=== PATIENT | male | born 1960 | race Caucasian/White ===

== ENCOUNTER 2024-05-13 07:45 | Outpatient (CLI) | payer OTHER, SELFPAY | END 2024-05-13 07:46 | disposition home or self-care (01) | LOC: ANHLAB 07:47 | PROVIDERS: PCP Internal Medicine; Visit Provider Anesthesiology | DX: K40.90 Unilateral inguinal hernia, without obstruction or gangrene, not specified as recurrent (principal) | CPT/HCPCS: 36415; 86850; 86900; 86901 ==

== ENCOUNTER 2024-05-19 00:43 | Day surgery (SDC) | payer OTHER, SELFPAY ==
[2024-05-08 10:32] VITALS: BMI 25.2
--- NOTE | 2024-05-08 10:35 | PC.NURSE ---
Report to the Outpatient Waiting Room, entrance under the green pavilion located off [facility], at time 0600_ on date _05/19/24_. Planned Procedure Time: 0730_.? Time changes happen often and if your time is changed the preop area will call you the afternoon before. - You and your visitor will be asked to self-screen and do not enter if you have any COVID symptoms. Please call surgeon if you need to reschedule. - A mask is optional within the hospital at this time. Patients may have clear liquids (water, carbonated beverages, clear teas, apple juice) until 3 hours prior to surgery with a maximum of 20 ounces. - No food from midnight until time of surgery and no smoking. This includes no chewing gum, candy or mints. - Infants may have breast milk until 4 hours before surgery, formula 6 hours prior to surgery. - Children will be allowed to drink immediately following surgery.? If applicable, please bring a bottle or sippy cup to assist with drinking. Juice, water, soda, and popsicles are readily available.? For infants on formula, please bring formula the day of surgery.? Pacifiers are allowed. Take only the following medications with a SIP of water on the morning of surgery: __NONE DO NOT STOP ANY OF YOUR OTHER PRESCRIPTION MEDICATIONS PRIOR TO SURGERY EXCEPT THE FOLLOWING Medications to discontinue per physician ___ALEVE Date to take last dose 05/14/24 Please no make-up, nail bengali, hairspray, perfume, deodorant, or body powder the day of surgery.? No jewelry (including any body piercings) or valuables the day of surgery, leave them at home.? Please take a shower or bath the night before, or the morning of, surgery with HIBICLENS antibacterial soap.? Wear comfortable, loose fitting clothing.? Children are encouraged to wear pajamas. - Jewelry must be removed prior to entering the operating room.? Rings and piercings that are not removed may be cut off. - The hospital will not accept responsibility for valuables.? - Please leave all valuables, including medications, at home the day of surgery. If you are going home after surgery, a licensed new car driver must drive you home.? - NO public transportation without another adult if you receive anesthesia. - We recommend that an adult stay with you for 24 hours following discharge. - We also recommend that you do not drive, make important decision, drink alcoholic beverages, or take any drugs that were not prescribed by your health care provider for at least 24 hours after your discharge time. For Pediatric surgeries, we recommend two adults accompany the child home. Follow any additional instructions given to you from your surgeon. Telephone instructions given to PATIENT__and asked if any additional questions and then verbalized understanding. Patient advised to call surgeon office or pre surgery nurse liaison [phone] if any additional questions.
[2024-05-19] VITALS (9 sets, daily range): BP systolic 113–162; BP diastolic 75–99; PULSE 62–77; RESP 14–32; TEMP 36.4–36.5; O2SAT 96–100
--- OUTSIDE RECORDS SUMMARY | 2024-05-19 00:47 | XMS_ITS | Data Portability ---
Author Organization [place] [email or web address], Main Office Address [address] [place] [address] Care Team Providers Care Farmhand Name Role Phone SHABBIR SALAMANCA Primary Care Provider [phone] BEBO ORTA Civil Engineering Assistant Assessment Encounter Date Assessment Date Assessment LastModified by Organization Details LastModified Time 11/26/2023 11/26/2023 06/14/2022: HCT 38.6 AST 51 12/20/2022: HONEY +ve ccp Ab 31 ESR 75 CRP 2.30 RF 29.3 Hep panel: Neg Gluc 104 HCT 39.0 05/28/2023: Testosteron Free 14.70 A1C 5.0 Gluc 102 08/26/2023: A1C 5.1 H/H 12.6/36.2 TP WNL, glob 2.4L Not available 11/26/2023 11:02:26 2023 2023 hyper pigmented lesion mid scalp. Patient remains concerned as well as his primary care physician has referred a again for the same reason. We will obtain punch biopsy to rule out malignancy. Risks and benefits of the procedure were discussed risks include bleeding and infection Not available 2023 11:24:53 01/30/2024 01/30/2024 06/14/2022: HCT 38.6 AST 51 12/20/2022: HONEY +ve ccp Ab 31 ESR 75 CRP 2.30 RF 29.3 Hep panel: Neg Gluc 104 HCT 39.0 05/28/2023: Testosteron Free 14.70 A1C 5.0 Gluc 102 08/26/2023: A1C 5.1 H/H 12.6/36.2 TP WNL, glob 2.4L 12/04/2023: A1C 5.1 PSA 2.12 H/H 12.9/38.1, MCV 98.7 (B12/Folate/T SH: WNL) Not available 01/30/2024 16:03:00 02/06/2024 02/06/2024 we will out abdominal wall hernia. Does not have a inguinal hernia on exam. We will proceed with CT scan to further evaluate Not available 02/06/2024 12:37:31 03/03/2024 03/03/2024 06/14/2022: HCT 38.6 AST 51 12/20/2022: HONEY +ve ccp Ab 31 ESR 75 CRP 2.30 RF 29.3 Hep panel: Neg Gluc 104 HCT 39.0 05/28/2023: Testosteron Free 14.70 A1C 5.0 Gluc 102 08/26/2023: A1C 5.1 H/H 12.6/36.2 TP WNL, glob 2.4L 12/04/2023: A1C 5.1 PSA 2.12 H/H 12.9/38.1, MCV 98.7 (B12/Folate/T SH: WNL) Not available 03/02/2024 19:21:57 Plan of Treatment Reminders Order Date Submit Date Provider Last Modified By Organization Details Last Modified Time Details Appointments Any 15 2024 04:15P M Shabbir cordero MD Not available Not available Not available Lab lipid panel, serum 2023 024 [facility] (Lab), [address] [place], [address], 12/04/2023 12:33:19 CBC w/ auto diff 2023 024 [facility] (Lab), [address] [place], [address], 12/04/2023 12:21:47 CMP, serum or plasma 2023 024 [facility] (Lab), [address] [place], [address], 12/04/2023 12:33:24 TSH, serum or plasma 2023 024 [facility] (Lab), [address] [place], [address], 12/04/2023 13:42:29 glycohemo globin, total, blood 2023 024 [facility] (Lab), [address] [place], [address], 12/04/2023 14:37:04 vitamin D, 25-hydrox y, total, serum [address] (Lab), [address] [place], [address], 11/26/2023 11:16:53 vitamin B12 + folate, serum or blood [address] (Lab), [address] [place], [address], 11/26/2023 11:16:53 lipid panel, serum [address] (Lab), [address] [place], [address], 01/30/2024 16:22:21 CBC w/ auto diff [address] (Lab), [address] [place], [address], 01/30/2024 16:22:21 CMP, serum or plasma [address] (Lab), [address] [place], [address], 01/30/2024 16:22:22 TSH, serum or plasma [email or web address] (Lab), [address] [place], [address], 01/30/2024 16:22:22 glycohemo globin, total, blood [email or web address] (Lab), [address] [place], [address], 01/30/2024 16:22:23 vitamin D, 25-hydrox y, total, serum [address] (Lab), [address] [place], [address], 01/30/2024 16:22:22 vitamin B12 + folate, serum or blood [address] (Lab), [address] [place], [address], 01/30/2024 16:22:23 lipid panel, serum [address] (Lab), [address] [place], [address], 03/03/2024 15:27:08 CBC w/ auto diff [address] (Lab), [address] [place], [address], 03/03/2024 15:27:09 CMP, serum or plasma [address] (Lab), [address] [place], [address], 03/03/2024 15:27:09 TSH, serum or plasma [address] (Lab), [address] [place], [address], 03/03/2024 15:27:09 glycohemo globin, total, blood [address] (Lab), [address] [place], [address], 03/03/2024 15:27:10 vitamin D, 25-hydrox y, total, serum [address] (Lab), [address] [place], [address], 03/03/2024 15:27:09 vitamin B12 + folate, serum or blood [address] (Lab), [address] [place], [address], 03/03/2024 15:27:10 Referral orthopedi c surgeon referral 2023 024 [email or web address] Marquis Stubbs MD, [address] [facility] [address], [facility], [place], [address], 11/26/2023 11:18:40 ophthalmo logist referral [address], [address] [place], [place] [address]ate [place], [place], [address], 11/26/2023 11:18:40 general surgeon referral 2023 024 [email or web address] [address] Ludin Sánchez MD, [address] [facility], [address], [place], [address], 12/26/2023 15:08:31 cardiolog ist referral 2023 024 [place], [address], [address], [place], [address], 01/20/2024 13:36:51 general surgeon referral 2023 024 [email or web address] Ludin Sánchez MD, [address] [facility], [facility] [address], [place], [address], 12/26/2023 15:08:40 rheumatol ogist referral 2023 024 [email or web address] [facility]ology, [address] [place] [address], [address], 04/02/2024 11:11:19 general surgeon referral 2023 024 Luidn Sánchez MD, [address] [facility], [facility] [address], [place], [address], 03/03/2024 10:34:41 orthopedi c surgeon referral 2023 024 [email or web address] Marquis Stubbs MD, [address] [place], [address], 01/30/2024 16:22:51 ophthalmo logist referral [email or web address], [address], 01/30/2024 16:22:51 cardiolog ist referral 2023 024 [email or web address] [place], [address] , [place] [address], [address], 01/30/2024 16:22:51 general surgeon referral 2023 024 [email or web address] Ludin Sánchez MD, [address] [facility], [facility] [address], [place], [address], 03/03/2024 10:34:41 rheumatol ogist referral 2023 024 [email or web address] [facility] - Rheumatology, [address] [place] [address], [address], 03/04/2024 14:12:14 general surgeon referral 2023 024 [email or web address] Jeremy Jc DO, [address], [address], [place], [address], 03/04/2024 14:11:45 orthopedi c surgeon referral 2023 024 Marquis Stubbs MD, [address] [facility] [address], [facility], [place], [address], 03/04/2024 14:12:36 ophthalmo logist referral 2023 024 [email or web address] [facility], On license of [facility], [place], [address], 03/04/2024 14:12:37 cardiolog ist referral 2023 024 [place], [address], [address], [place], [address], 03/04/2024 14:11:46 general surgeon referral 2023 024 [email or web address] Ludin Sánchez MD, [address] [facility], [address], [place], [address], 03/04/2024 14:11:45 Procedures None recorded. Surgeries None recorded. Imaging US, liver 2023 024 [email or web address] Not available 11/26/2023 11:18:41 Medication Orders sildenafi l 100 mg tablet 2023 024 [id number], [address], [place], [place], [id number], 11/26/2023 11:16:32 meclizine 25 mg tablet 2023 024 [email or web address] [facility], [address], [place], [place], [id number], 01/30/2024 15:42:05 meclizine 25 mg tablet [email or web address] [facility], [address], [place], [place], [id number], 01/30/2024 16:20:50 meclizine 25 mg tablet 2023 024 [facility]21, [address], [place], [place], [id number], 03/03/2024 15:27:07 Patient TargetsNo targets recorded. Patient InstructionsNo instructions recorded. Reason for Referral Orthopedic Surgeon Referral for Pain of left shoulder joint Referring Physician: Shabbir Salamanca [facility], Encounter Date: 11/26/2023 Delivery Aide Referral for Long-term current use of hydroxychloroquine Referring Physician: Shabbir Salamanca [facility], Encounter Date: 11/26/2023 General Surgeon Referral for Inguinal pain Referring Physician: Shabbir Salamanca [facility], Encounter Date: 11/26/2023 General Surgeon Referral for Skin lesion Referring Physician: Shabbir Salamanca [facility], Encounter Date: 11/26/2023 Civil Engineering Assistant Referral for Sc reening for cardiovascular system disease Referring Physician: Shabbir Salamanca [facility], Encounter Date: 11/26/2023 Orthopedic Surgeon Referral for Pain of left shoulder joint Referring Physician: Angel Peterson Medicine, Encounter Date: 01/30/2024 Delivery Aide Referral for Long-term current use of hydroxychloroquine Referring Physician: Angel Peterson Medicine, Encounter Date: 01/30/2024 General Surgeon Referral for Inguinal pain Referring Physician: Shabbir Salamanca [facility], Encounter Date: 01/30/2024 General Surgeon Referral for Skin lesion Referring Physician: Angel Peterson Medicine, Encounter Date: 01/30/2024 Civil Engineering Assistant Referral for Sc reening for cardiovascular system disease Referring Physician: Angel Peterson Medicine, Encounter Date: 01/30/2024 Director Of Sustainability Programs Referral for Arthritis Referring Physician: Shabbir Salamanca Internal [facility], Encounter Date: 01/30/2024 Orthopedic Surgeon Referral for Pain of left shoulder joint Referring Physician: Angel Peterson Medicine, Encounter Date: 03/03/2024 Delivery Aide Referral for Long-term current use of hydroxychloroquine Referring Physician: Angel Peterson Medicine, Encounter Date: 03/03/2024 General Surgeon Referral for Inguinal pain Referring Physician: Angel Peterson Medicine, Encounter Date: 03/03/2024 General Surgeon Referral for Skin lesion Referring Physician: Angel Peterson Medicine, Encounter Date: 03/03/2024 Civil Engineering Assistant Referral for Sc reening for cardiovascular system disease Referring Physician: Angel Peterson, Encounter Date: 03/03/2024 Director Of Sustainability Programs Referral for Arthritis Referring Physician: Angel Peterson, Encounter Date: 03/03/2024 Results Created Date Observation Date Name Description Value Unit Range Abnormal Flag Note LastModifiedBy Organization Detail LastModifiedTime 12/04/19 24 12/04/2023 CBC/C OMPLE TE BLD COUNT W/DIF F white blood cells 8.3 x10'3 /uL 4.2-10 .8 Not Available [facility] (Lab) [address] [place], [address], 12/04/2023 12:21:47 12/04/19 24 12/04/2023 CBC/C OMPLE TE BLD COUNT W/DIF F red blood cells 3.86 x10'6 /uL 4.10-5 .80 low Not Available [facility] (Lab) [address] [place], [address], 12/04/2023 12:21:47 12/04/19 24 12/04/2023 CBC/C OMPLE TE BLD COUNT W/DIF F hemoglobin 12.9 g/dL 13.2-1 7.0 low Not Available [facility] (Lab) [address] [place], [address], 12/04/2023 12:21:47 12/04/19 24 12/04/2023 CBC/C OMPLE TE BLD COUNT W/DIF F hematocrit 38.1 % 39.3-5 0.0 low Not Available [facility] (Lab) [address] [place], [address], 12/04/2023 12:21:47 12/04/19 24 12/04/2023 CBC/C OMPLE TE BLD COUNT W/DIF F mean red cell volume 98.7 fL 80.0-9 7.0 high Not Available [facility] (Lab) [address] [place], [address], 12/04/2023 12:21:47 12/04/19 24 12/04/2023 CBC/C OMPLE TE BLD COUNT W/DIF F mean red cell hemoglobin 33.4 pg 27.0-3 3.0 high Not Available [facility] (Lab) [address] [place], [address], 12/04/2023 12:21:47 12/04/19 24 12/04/2023 CBC/C OMPLE TE BLD COUNT W/DIF F mean RBC HGB concentratio n 33.9 g/dL 31.0-3 6.0 Not Available [facility] (Lab) [address] [place], [address], 12/04/2023 12:21:47 12/04/19 24 12/04/2023 CBC/C OMPLE TE BLD COUNT W/DIF F red cell distribution width 12.9 % 11.8-1 5.5 Not Available [facility] (Lab) [address] [place], [address], 12/04/2023 12:21:47 12/04/19 24 12/04/2023 CBC/C OMPLE TE BLD COUNT W/DIF F platelets 242 x10'3 /uL 150-40 0 Not Available [facility] (Lab) [address] [place], [address], 12/04/2023 12:21:47 12/04/19 24 12/04/2023 CBC/C OMPLE TE BLD COUNT W/DIF F mean platelet volume 10.1 fL 9.0-12 .4 Not Available [facility] (Lab) [address] [place], [address], 12/04/2023 12:21:47 12/04/19 24 12/04/2023 CBC/C OMPLE TE BLD COUNT W/DIF F neutrophils 76.9 % 39.0-7 2.0 high Not Available [facility] (Lab) [address] [place], [address], 12/04/2023 12:21:47 12/04/19 24 12/04/2023 CBC/C OMPLE TE BLD COUNT W/DIF F lymphocytes 11.4 % 16.0-4 7.0 low Not Available [facility] (Lab) [address] [place], [address], 12/04/2023 12:21:47 12/04/19 24 12/04/2023 CBC/C OMPLE TE BLD COUNT W/DIF F monocytes 8.9 % 5.0-12 .0 Not Available [facility] (Lab) [address] [place], [address], 12/04/2023 12:21:47 12/04/19 24 12/04/2023 CBC/C OMPLE TE BLD COUNT W/DIF F eosinophils 1.8 % 1.0-7. 0 Not Available [facility] (Lab) [address] [place], [address], 12/04/2023 12:21:47 12/04/19 24 12/04/2023 CBC/C OMPLE TE BLD COUNT W/DIF F basophils 0.6 % 0.0-2. 0 Not Available [facility] (Lab) [address] [place], [address], 12/04/2023 12:21:47 12/04/19 24 12/04/2023 CBC/C OMPLE TE BLD COUNT W/DIF F immature granulocytes 0.4 % 0.00-0 .50 Not Available [facility] (Lab) [address] [place], [address], 12/04/2023 12:21:47 12/04/19 24 12/04/2023 CBC/C OMPLE TE BLD COUNT W/DIF F neutrophils, absolute count 6.38 x10'3 /uL 1.5-8. 0 Not Available [facility] (Lab) [address] [place], [address], 12/04/2023 12:21:47 12/04/19 24 12/04/2023 CBC/C OMPLE TE BLD COUNT W/DIF F lymphocytes, absolute count 0.95 x10'3 /uL 1.07-3 .43 low Not Available [facility] (Lab) [address] [place], [address], 12/04/2023 12:21:47 12/04/19 24 12/04/2023 CBC/C OMPLE TE BLD COUNT W/DIF F monocytes, absolute count 0.74 x10'3 /uL 0.29-0 .99 Not Available [facility] (Lab) [address] [place], [address], 12/04/2023 12:21:47 12/04/19 24 12/04/2023 CBC/C OMPLE TE BLD COUNT W/DIF F eosinophils, absolute count 0.15 x10'3 /uL 0.02-0 .53 Not Available [facility] (Lab) [address] [place], [address], 12/04/2023 12:21:47 12/04/19 24 12/04/2023 CBC/C OMPLE TE BLD COUNT W/DIF F basophils, absolute count 0.05 x10'3 /uL 0.01-0 .08 Not Available [facility] (Lab) [address] [place], [address], 12/04/2023 12:21:47 12/04/19 24 12/04/2023 CBC/C OMPLE TE BLD COUNT W/DIF F immature granulocytes ,absolute 0.03 x10'3 /uL 0.00-0 .05 Not Available [facility] (Lab) [address] [place], [address], 12/04/2023 12:21:47 12/04/19 24 12/04/2023 CBC/C OMPLE TE BLD COUNT W/DIF F nucleated red blood cells 0.0 % -0 Not Available [facility] (Lab) [address] [place], [address], 12/04/2023 12:21:47 12/04/19 24 12/04/2023 CBC/C OMPLE TE BLD COUNT W/DIF F NRBC# 0.00 x10'3 /uL Not Available [facility] (Lab) [address] [place], [address], 12/04/2023 12:21:47 12/04/19 24 12/04/2023 LIPID PANEL cholesterol 153 mg/dL 140-19 9 NIH CALEB NSUS RECOM MENDA TION FOR OSIEL STERO L: ADULT CHILD LOW RISK: <200 <170 BORDE RLINE : <200- 239 ----- HIGH RISK: >240 >200 Not Available [facility] (Lab) [address] [place], [address], 12/04/2023 12:33:19 12/04/19 24 12/04/2023 LIPID PANEL triglyceride s 49 mg/dL 0-150 NIH CALEB NSUS REPOR T RECOM MENDA TION FOR TRIGL YCERI ELIZABETH: ADULT CHILD LOW RISK: <150 ----- BODER LINE: 150-1 99 ----- HIGH RISK: >200 ----- Not Available [facility] (Lab) [address] [place], [address], 12/04/2023 12:33:19 12/04/19 24 12/04/2023 LIPID PANEL HDL cholesterol 65 mg/dL 40- Not Available [facility] (Lab) [address] [place], [address], 12/04/2023 12:33:19 12/04/19 24 12/04/2023 LIPID PANEL LDL cholesterol, calculated 78 mg/dL 0-130 NIH CALEB NSUS REPOR T RECOM MENDA TIONS FOR LDL: ADULT CHILD LOW RISK <130 <110 (OPTI MAL LDL) <100 ----- BORDE RLINE : 130-1 59 ----- HIGH RISK: >160 >130 A TRIGL YCERI DE RESUL T >400 INVAL IDATE S THE CALCU LATIO N FOR LDL FRACT IONAT ION - THE LDL RESUL T WILL NOT BE REPOR DIANA. Not Available [facility] (Lab) [address] [place], [address], 12/04/2023 12:33:19 12/04/19 24 12/04/2023 COMPR EHENS JOANA METAB OLIC PANEL sodium 137 mmol/ L 137-14 5 Not Available [facility] (Lab) [address] [place], [address], 12/04/2023 12:33:24 12/04/19 24 12/04/2023 COMPR EHENS JOANA METAB OLIC PANEL potassium 4.1 mmol/ L 3.5-5. 1 Not Available [facility] (Lab) [address] [place], [address], 12/04/2023 12:33:24 12/04/19 24 12/04/2023 COMPR EHENS JOANA METAB OLIC PANEL chloride 107 mmol/ L 98-107 Not Available [facility] (Lab) [address] [place], [address], 12/04/2023 12:33:24 12/04/19 24 12/04/2023 COMPR EHENS JOANA METAB OLIC PANEL carbon dioxide 28 mmol/ L 22-30 Not Available [facility] (Lab) [address] [place], [address], 12/04/2023 12:33:24 12/04/19 24 12/04/2023 COMPR EHENS JOANA METAB OLIC PANEL anion gap 6.1 mmol/ L 14-22 low Not Available [facility] (Lab) [address] [place], [address], 12/04/2023 12:33:24 12/04/19 24 12/04/2023 COMPR EHENS JOANA METAB OLIC PANEL glucose 98 mg/dL 70-99 Not Available [facility] (Lab) [address] [place], [address], 12/04/2023 12:33:24 12/04/19 24 12/04/2023 COMPR EHENS JOANA METAB OLIC PANEL BUN 18 mg/dL 8-19 Not Available [facility] (Lab) [address] [place], [address], 12/04/2023 12:33:24 12/04/19 24 12/04/2023 COMPR EHENS JOANA METAB OLIC PANEL creatinine 0.76 mg/dL 0.66-1 .25 Not Available [facility] (Lab) [address] [place], [address], 12/04/2023 12:33:24 12/04/19 24 12/04/2023 COMPR EHENS JOANA METAB OLIC PANEL GFR >60 Refer ence Range : [place] [facility] GFR Healt hy Adult : >60 mL/mi n/1.7 3 m2 Chron ic Kidne y Disea se: 15-60 mL/mi n/1.7 3 m2 Kidne y Failu re: <15/m L/min /1.73 m2 www.n iddk. nih.g ov The MDRD study equat ion has not been valid ated in child anna <18 years of age; pregn ant women ; the elder ly >85 years of age; or in some racia l or ethni c subgr oups, such as Hispa nics. Outsi de the valid ated ermelinda eters , estim ated GFR is less accur ate, requi ring clini sofia judgm ent on a case- by-ca se basis . Clini sofia inter preta tion for other races and ages must be made by the clini asif. The MDRD study equat ion has not been valid ated for the evalu ation of serum creat inine relat ed to nutri coco l statu s or medic ation usage . For perso ns <18 years of age, a pedia tric GFR calcu lator is avail able on the [facility] websi te: https ://neeta myers.demetra dobson/pr ofess ional s/kdo qi/gf r_cal culat or Not Available [facility] (Lab) [address] [place], [address], 12/04/2023 12:33:24 12/04/1912/04/2023 COMPR EHENS JOANA METAB OLIC PANEL alkaline phosphatase 55 U/L 38-126 Not Available [facility] (Lab) [address] [place], [address], 12/04/2023 12:33:24 12/04/19 24 12/04/2023 COMPR EHENS JOANA METAB OLIC PANEL alanine aminotransfe rase 18 U/L 0-50 Not Available [facility] (Lab) [address] [place], [address], 12/04/2023 12:33:24 12/04/19 24 12/04/2023 COMPR EHENS JOANA METAB OLIC PANEL aspartate aminotransfe rase 26 U/L 15-46 Not Available [facility] (Lab) [address] [place], [address], 12/04/2023 12:33:24 12/04/19 24 12/04/2023 COMPR EHENS JOANA METAB OLIC PANEL bilirubin, total 0.80 mg/dL 0.20-1 .30 Not Available [facility] (Lab) [address] [place], [address], 12/04/2023 12:33:24 12/04/19 24 12/04/2023 COMPR EHENS JOANA METAB OLIC PANEL calcium 8.7 mg/dL 8.4-10 .2 Not Available [facility] (Lab) [address] [place], [address], 12/04/2023 12:33:24 12/04/19 24 12/04/2023 COMPR EHENS JOANA METAB OLIC PANEL total protein 6.9 g/dL 6.3-8. 2 Not Available [facility] (Lab) [address] [place], [address], 12/04/2023 12:33:24 12/04/19 24 12/04/2023 COMPR EHENS JOANA METAB OLIC PANEL albumin 4.2 g/dL 3.4-5. 0 Not Available [facility] (Lab) [address] [place], [address], 12/04/2023 12:33:24 12/04/19 24 12/04/2023 COMPR EHENS JOANA METAB OLIC PANEL globulin 2.7 g/dL 2.6-4. 2 Not Available [facility] (Lab) [address] [place], [address], 12/04/2023 12:33:24 12/04/19 24 12/04/2023 COMPR EHENS JOANA METAB OLIC PANEL A/G ratio 1.6 ratio 1.0-2. 0 Not Available [facility] (Lab) [address] [place], [address], 12/04/2023 12:33:24 12/04/19 24 12/04/2023 TSH W/REF NEMESIO FT4 TSH with reflex free T4 0.581 uIU/m L 0.465- 4.680 Not Available [facility] (Lab) [address] [place], [address], 12/04/2023 13:42:29 12/04/19 24 12/04/2023 VITAM IN D 25-HY DROXY vd25oh 54.6 NG/mL 30-100 Vitam in D Statu s: Defic ient: <20 ng/mL Insuf ficie nt: 20-29 ng/mL Suffi cient : 30-10 0 ng/mL Not Available [facility] (Lab) [address] [place], [address], 12/04/2023 13:56:28 12/04/1912/04/2023 HEMOG LOBIN A1C HA1C 5.1 % 4.0-6. 0 Diabe alexy Scree gillian Crite deshaun: <5.7% Consi stent with absen ce of diabe alexy 5.7-6 .4% Consi stent with incre ased risk for diabe alexy (pred iabet es) >OR=6 .5% Consi stent with diabe alexy REFER ENCE: Diabe alexy Care 2016, 39([place] ppl.1 ):s13 -s22 Not Available [facility] (Lab) [address] [place], [address], 12/04/2023 14:37:04 12/04/19 24 12/04/2023 VITAM IN B12 (OREN ASHWINI ) vb12 405 pg/mL 239-93 1 Not Available [facility] (Lab) [address] [place], [address], 12/04/2023 17:07:58 12/04/19 24 12/04/2023 FOLAT E, SERUM /PLAS MA folate 5.08 NG/mL 2.76-2 0.0 Not Available [facility] (Lab) [address] [place], [address], 12/04/2023 17:07:59 02/13/2002/13/2024 CREAT ININE , I-STA T creatinine 0.9 mg/dL 0.6-1. 3 Not Available [facility] (Lab) [address] [place], [address], 02/13/2024 16:14:54 12/13/19 US, abdom en, limit ed [facility] [address] [facility] [place] [id number] Patien t Name: MEG NETTLES FLOWER Ya ion #: [id number] Sex: M : 1960 8 Dictat ed By: Laurent Piper ms Attend ing Physic bree: JUAN MYERS Orderi Physic bree: JUAN MYERS Exam Date: 2023 07:53 AM Exam Name: US ABD/LT D/ORG/ UQ/GB Admitt ing Diagno sis(es ): INDICA TION: Elevat ed liver enzyme s. TECHNI QUE: Multip le real-t zainab sonogr aphic images of the abdome n were obtain ed. COMPAR CHAPO: None FINDIN GS: The liver is homoge nous in echoge nicity . The liver measur es 16.0 cm. No intrah epatic biliar y ductal dilata tion is noted. Hepato petal flow in the main portal vein. The gallbl adder wall measur es 0.2 cm and is unrema rkable . No gallst ones or sludge is seen. The common duct measur es 0.5 cm and is unrema rkable . No perich olecys tic fluid is noted. The right kidney measur es 12.6 cm. No hydron ephros is. The pancre as is not well visual ized due to obscur ation from bowel gas. The visual ized portio ns of the IVC and aorta are grossl y unrema rkable . IMPRES LEROY: 1. Normal ultras ound of the abdome n. Electr onical ly Signed by: Laurent Piper ms at 2023 08:59: 55 AM Page 1 INTERFACE [facility] (Imaging) [address] [place], [address], 12/13/2023 10:02:44 12/13/19 24 12/13/2023 US, liver No observ ation record ed. [facility] [address] [place], [place], [id number], 12/13/2023 10:05:15 02/13/20 24 02/13/2024 CT, abdom en + pelvi s, w/ contr ast [facility] [address] [place], [place] [id number] [phone] Patien t Name: [address]OWER [address] Access ion #: [id number] Sex: M : 1960 5 Dictat ed By: Cm Sen Attend ing Physic bree: SAM ROSE Orderi ng Physic bree: SAM ROSE Exam Date: 2023 14:45 PM Exam Name: CT ABDOME N PELVIS W Admitt ing Diagno sis(es ): Exam: CT ABDOME N PELVIS W Histor y: abdomi nal pain Compar chapo Study: None availa ble at time of dictat ion. TECHNI QUE: A digita l vine pruner image was obtain ed. During the uneven tful, intrav enous admini strati on of contra st materi al, multis lice data acquis ition was obtain ed throug h the abdome n and pelvis . The data set was subseq uently recons tructe d into axial images . Images were review ed on a work statio n using a combin ation of axial and multip lanar using a variet y of window levels and settin gs. Radiat ion Dose Inform ation: CT Dose: CTDI volume is 25 mGy. Dose-l ength produc t is 250 mGy*cm FINDIN GS: Lung Bases: No acute or signif icant lung base findin g. Normal heart size. No pleura l or perica rdial effusi on. Liver: The liver is normal in size. No focal lesion s. Normal hepati c vascul ar enhanc ement. 1 cm hepati c cyst in the right lobe. Gallbl adder and Biliar y Tree: Unrema rkable Spleen : Unrema rkable Pancre as: The pancre as is normal in appear ance withou t focal lesion s or abnorm al enhanc ement. Page 1 [facility] [address] [address] Patien t Name: FLOWER [address] RD ion #: [id number] Sex: M : 1960 5 Dictat ed By: Cm Sen Attend ing Physic bree: DEYSI RAWLS [facility] Physic bree: SAM ROSE Exam Date: 2023 14:45 PM Exam Name: CT ABDOME N PELVIS W Admitt ing Diagno sis(es ): Adrena l Glands : Unrema rkable Kidney s: Kidney s demons trate normal symmet lc enhanc ement withou t focal lesion s, calcul i or hydron ephros is. Bladde r: Unrema rkable Bowel: The stomac h is grossl y normal in appear ance. Small bowel and colon are normal in calibe r and distri bution . The append ix is not visual ized; howeve r, no second siomara findin gs of acute append icitis identi fied. Ascite s: Absent Lympha denopa thy: No mesent geraldine, retrop eriton eal or peripo rtal lympha denopa thy. Abdomi nal Wall and Mesent swetha: Unrema rkable . Vascul ature: The visual ized abdomi nal aorta is normal in size and calibe r. Abdomi nal and pelvic vessel s demons trate normal enhanc ement. Pelvic Organs : Unrema rkable Muscul oskele sanjuanita: No aggres sive focal bony lesion s, acute fractu res or disloc ation. Soft tissue s: Unrema rkable . IMPRES LEROY: No acute abnorm ality in the abdome n or pelvis . All CT scans at [facility] l facili ty are perfor med using dose modula tion techni ques as approp riate to a perfor med exam includ ing the follow ing:Au tomate d exposu re contro l was utiliz ed; adjust ment of the MA and/or KV accord ing to patien t size; and use of iterat joana recons tructi on techni que. Electr onical ly Signed by: Cm Sen at 2023 15:34: 34 PM Page [address] (Imaging) [address] [place], [address], 02/18/2024 10:59:25 02/13/20 24 02/13/2024 CT, abdom en + pelvi s, w/ contr ast No observ ation record ed. [address] [place], [address], 02/18/2024 11:05:10 02/13/2002/13/2024 CT, abdom en + pelvi s, w/ contr ast No observ ation record ed. [address] [place], [address], 04/16/2024 08:52:14 02/19/2002/19/2024 imagi ng/di agnos tic resul t No observ ation record ed. [email or web address] [facility] [address] [facility] [address], [place], [address], 04/16/2024 08:54:52 02/19/20 24 02/19/2024 imagi ng/di agnos tic resul t No observ ation record ed. [address] [facility] [address], [place], [address], 04/16/2024 08:55:15 02/26/20 24 02/26/2024 imagi ng/di agnos tic resul t No observ ation record ed. [address] [facility] [address], [place], [address], 04/16/2024 09:00:25 03/11/20 24 03/11/2024 imagi ng/di agnos tic resul t No observ ation record ed. [address] [facility] [address], [place], [address], 04/16/2024 09:09:29 Result Notes None recorded. Problems Name Problem SNOMED Code Status Onset Date Resolution Date Notes Provider Name and Address Organization Details Recorded Time Pain of bilateral hands 5741943814831 9109 Active 2021 Not Available [facility] 3 05:13:56 Pain of left shoulder joint 0371233498686 9109 Active 2021 Not Available [facility] 3 05:13:56 Pain of right shoulder joint 6902539607451 9100 Active 2021 Not Available [facility] 3 05:13:56 Insomnia 776112318 Active Not Available [facility] 3 05:13:56 Accidental fall Active Not Available [facility] 3 05:13:56 Osteoarthr itis of knee 663986801 Active Not Available [facility] 3 05:13:56 Infection of sebaceous cyst 546338786 Active Not Available [facility] 3 05:13:56 Tear of medial meniscus of knee 089310667 Active 2020 Not Available [facility] 3 05:13:56 Knee pain Active Not Available [facility] 3 05:13:56 Pain in left foot 8882351752811 07 Active Not Available [facility] 3 05:13:56 Vitamin D deficiency 90316915 Active 2022 Not Available [facility] 3 05:13:56 Mass of shoulder region 218745575 Active Not Available [facility] 3 05:13:56 Foot pain 22727994 Active 2021 Not Available [facility] 3 05:13:56 Primary osteoarthr itis of midfoot 082761813 Active 2021 Not Available [facility] 3 05:13:57 Liver enzymes level above reference range 542175286 Active 2022 Not Available [facility] 3 05:13:57 Skin lesion 59018172 Active 2022 Not Available [facility] 3 05:13:57 Cerebrovas cular accident 854007119 Active 2022 Shabbir anderson MD [address], [place], [address] , [facility] [employer] [facility] 3 08:51:28 Erectile dysfunctio n 257550582 Active 2022 Shabbir anderson MD [address], [place], [address] , linkedü [facility] [employer] [facility] 3 08:51:43 Arthritis 5238743 Active 2022 Shabbir anderson MD [address], [place], [address] , linkedü [facility] [employer] [facility] 3 12:08:07 Serum vitamin B12 below reference range 542342281 Active 2022 Shabbir anderson MD [address], [place], [address] , [place] [facility] [employer] [facility] 3 12:09:39 Blood glucose outside reference range 588059593 Active 2023 Kaylynn Simpson RN null, [facility] 4 16:26:38 Hyperglyce harper 06329528 Active 2023 Shabbir anderson MD [address], [address], [place], [address] , [facility] [employer] [facility] 4 12:27:55 Changing color of pigmented skin lesion 984210997 Active 2023 Sultana Westbrook MA null, [facility] [employer] [facility] 4 14:18:44 Inguinal pain 480607646 Active 2023 Shabbir anderson MD [address], [address], [place], [address] , [facility] [employer] [facility] 4 11:13:01 Vertigo 387397782 Active 2023 Shabbir anderson MD [address], [address], [place], [address] , [facility] [employer] [facility] 4 11:14:30 Notes:Some problems listed i n Document: #[id number] could not be added to this patient's chart. Please review this document and add these problems to the patient's chart manually as needed. Problem Notes None recorded. Procedures Surgical History Date Name Laterality Status Provider Name and Address Organization Details Recorded Time 4 Blank Procedure Note completed Ludin Chavarria MD [address], [address], [place], [address], [facility] [employer] [facility] 2023 11:40:53 Knee Surgery completed Not Available [employer] 06/20/2022 05:05:22 Imaging Results Imaging Date Name Status [facility]Modified by [facility] Details LastModified Time 12/13/2023 US, abdomen, limited active INTERFACE [facility] (Imaging) [address], [place], [address], 12/13/2023 10:02:44 12/13/2023 US, liver active LIN [facility] [address] [place], [address], 12/13/2023 10:05:15 02/13/2024 CT, abdomen + pelvis, w/ contrast completed [address] (Imaging) [address] [place], [address], 02/18/2024 10:59:25 02/13/2024 CT, abdomen + pelvis, w/ contrast completed [address] [place], [address], 02/18/2024 11:05:10 02/13/2024 CT, abdomen + pelvis, w/ contrast completed [address] [place], [address], 04/16/2024 08:52:14 02/19/2024 imaging/diagn ostic result completed [address] [facility] [address] [address], [place], [address], 04/16/2024 08:54:52 02/19/2024 imaging/diagn ostic result completed [address] [facility] [address], [place], [address], 04/16/2024 08:55:15 02/26/2024 imaging/diagn ostic result completed [address] [facility] [address], [place], [address], 04/16/2024 09:00:25 03/11/2024 imaging/diagn ostic result completed [address] [facility] [address], [place], [address], 04/16/2024 09:09:29 Procedure Notes None recorded. Medical Equipment None Reported. Allergies No known drug allergies Medications Name Sig Start Date Stop Date Status Note LastModified by Organization Details LastModified Time hydrocodone 5 mg-acetamin ophen 325 mg tablet TAKE 1 TABLET BY MOUTH TWICE DAILY FOR 15 DAYS NEEDED 06/14 completed Not Available Not Available Not Available meloxicam 15 mg tablet TAKE 1 TABLET BY MOUTH EVERY DAY NEEDED 06/14 completed Not Available Not Available Not Available leflunomide 20 mg tablet TAKE 1 TABLET BY MOUTH DAILY active Not Available Not Available No t Available sildenafil 100 mg tablet TAKE 1 TAB BY MOUTH 30 MINS PRIOR TO SEX TWICE A WEEK NEEDED. GO TO ER IF ERECTION LASTS >2 HRS active Not Available Not Available No t Available cyproheptad ine 4 mg tablet TAKE ONE TABLET BY MOUTH TWICE DAILY 10/02 completed Not Available Not Available Not Available Kenalog 10 mg/mL suspension for injection In office injection administe red by the provider 05/18 completed NDC: 0003- 0494- 20 Not Available Not Available Not Available meclizine 25 mg tablet Take 1 tablet twice a day by oral route as needed for 15 days. 2023 active Not Available Not Available Not Avai lable bisacodyl 5 mg tablet,theo yed release 1 TAB PO QD 08/02 completed Not Available Not Available Not Available zolpidem 5 mg tablet TAKE ONE TABLET BY MOUTH AT BEDTIME NEEDED 10/02 completed Not Available Not Available Not Available hydroxychlo roquine 200 mg tablet TAKE 2 TABLETS BY MOUTH DAILY active Not Available Not Available No t Available levofloxaci n 750 mg tablet 10/02 completed Not Available Not Available Not Available methylpredn isolone 4 mg tablets in a dose pack FOLLOW PACKAGE DIRECTION S 07/28 completed Not Available Not Available Not Available amoxicillin 875 mg-potassiu m clavulanate 125 mg tablet TAKE 1 TABLET BY MOUTH TWICE DAILY 07/28 completed Not Available Not Available Not Available Ventolin HFA 90 mcg/actuati on aerosol inhaler 10/02 completed Not Available Not Available Not Available eszopiclone 2 mg tablet TAKE ONE TABLET BY MOUTH ONCE DAILY active Not Available Not Available No t Available lidocaine (PF) 10 mg/mL (1 %) injection solution In office injection administe red by the provider 05/18 completed NDC: 0409- 4276- 17 Not Available Not Available Not Available GaviLyte-G 236 gram-22.74 gram-6.74 gram-5.86 gram oral solution 10/12 completed Not Available Not Available Not Available Vitals Date Recorded Body height Body mass index (BMI) Body weight Body temperature Heart rate Oxygen saturation Oxygen saturation in Arterial blood by Pulse oximetry Systolic blood pressure Diastolic blood pressure Provider Name and Address Organization Details Last Updated DateTime 4 182.88 cm 23.5 kg/m2 23329.4 8 g 97.9 [degF] 69 /min 97 % 97 % 110 mm[Hg] 60 mm[Hg] Constance Moy MA [facility] Lost My Name [facility] 4 10:50:39 Date Recorded Body height Body mass index (BMI) Body weight Provider Name and Address Organization Details Last Updated DateTime 2023 182.88 cm 23.5 kg/m2 22114.48 g Aarti Galindo [facility] [employer] [facility] 2023 10:44:14 Date Recorded Body temperature Heart rate Oxygen saturation Oxygen saturation in Arterial blood by Pulse oximetry Respiratory rate Systolic blood pressure Diastolic blood pressure Provider Name and Address Organization Details Last Updated DateTime 4 98.6 [degF] 70 /min 98 % 98 % 12 /min 110 mm[Hg] 70 mm[Hg] Cara Cook MA [facility] Lost My Name [facility] 4 10:51:08 Date Recorded Body height Body mass index (BMI) Body weight Body temperature Heart rate Respiratory rate Oxygen saturation Oxygen saturation in Arterial blood by Pulse oximetry Systolic blood pressure Diastolic blood pressure Provider Name and Address Organization Details Last Updated DateTime 4 182.88 cm 23.6 kg/m2 66031.0 7 g 98 [degF] 98 /min 16 /min 98 % 98 % 118 mm[Hg] 64 mm[Hg] Gaston Lloyd LPN [facility] Lost My Name [facility] 4 15:38:52 Date Recorded Body height Body mass index (BMI) Body weight Body temperature Heart rate Respiratory rate Oxygen saturation Oxygen saturation in Arterial blood by Pulse oximetry Systolic blood pressure Diastolic blood pressure Provider Name and Address Organization Details Last Updated DateTime 4 182.88 cm 23.6 kg/m2 90104.0 7 g 98.6 [degF] 92 /min 14 /min 98 % 98 % 120 mm[Hg] 60 mm[Hg] Cara Cook MA [employer] 4 11:58:20 Date Recorded Body height Body mass index (BMI) Body weight Body temperature Heart rate Respiratory rate Oxygen saturation Oxygen saturation in Arterial blood by Pulse oximetry Systolic blood pressure Diastolic blood pressure Provider Name and Address Organization Details Last Updated DateTime 4 182.88 cm 23.5 kg/m2 90637.4 8 g 98.2 [degF] 78 /min 18 /min 96 % 96 % 94 mm[Hg] 62 mm[Hg] Gaston Lloyd LPN [facility] 4 15:05:51 Social History Question Answer Notes LastModified by Organization Details LastModified Time Tobacco Smoking Status Never Smoker Not Available [employer] 06/20/2022 05:04:48 Do You Have An Advance Directive? No MIGRATION.390 [id number] Information not available 06/20/2022 What Is Your Level Of Alcohol Consumption? None MIGRATION.136 [id number] Information not available 06/20/2022 Do You Wear A Helmet When Biking? Yes MIGRATION.917 [id number] Information not available 06/20/2022 What Is Your Level Of Caffeine Consumption? Heavy MIGRATION.293 [id number] Information not available 06/20/2022 In The 14 Days Before Symptom Onset, Have You Had Close Contact With A Laboratory-conf irmed COVID-19 While That Case Was Ill? No MIGRATION.263 [id number] Information not available 06/20/2022 In The 14 Days Before Symptom Onset, Have You Had Close Contact With A Person Who Is Under Investigation For COVID-19 While That Person Was Ill? No MIGRATION.316 [id number] Information not available 06/20/2022 What Type Of Diet Are You Following? REGULAR MIGRATION.283 [id number] Information not available 06/20/2022 Do You Or Have You Ever Used E-cigarettes Or Vape? Current User Of Electronic Cigarettes Vapes Occasionally Information not available 12/20/2022 What Is The Highest Grade Or Level Of School You Have Completed Or The Highest Degree You Have Received? 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 No MIGRATION.857 [id number] Information not available 06/20/2022 What Is The Fluoride Status Of Your Home? Unknown MIGRATION.619 [id number] Information not available 06/20/2022 Are There Any Guns Present In Your Home? No MIGRATION.865 [id number] Information not available 06/20/2022 Do You Use Insect Repellent Routinely? No MIGRATION.222 [id number] Information not available 06/20/2022 Where Do You Live? [place]House MIGRATION.502 [id number] Information not available 06/20/2022 Do You Have A Medical Power Of Plan Coordinator? No MIGRATION.108 [id number] Information not available 06/20/2022 What Was The Date Of Your Most Recent Tobacco Screening? 11/26/2023 [email or web address] Information not available 11/26/2023 Do You Have Any Pets? No MIGRATION.303 [id number] Information not available 06/20/2022 What Is Your Relationship Status? MIGRATION.890 [id number] Information not available 06/20/2022 Do You Use Your Seat Belt Or Car Seat Routinely? Yes MIGRATION.999 0508408 Information not available 06/20/2022 Do You Have Smoke And Carbon Monoxide Detectors In Your Home? Yes MIGRATION.537 [id number] Information not available 06/20/2022 Are You Passively Exposed To Smoke? No MIGRATION.248 6085090 Information not available 06/20/2022 Do You Or Have You Ever Used Smokeless Tobacco? Never Used Smokeless Tobacco Information not available 12/20/2022 Are There Any Smokers In Your House? No MIGRATION.357 1158270 Information not available 06/20/2022 What Types Of Sporting Activities Do You Participate In? None MIGRATION.828 [id number] Information not available 06/20/2022 Do You Feel Stressed (tense, Restless, Nervous, Or Anxious, Or Unable To Sleep At Night)? [id number] MIGRATION.481 [id number] Information not available 06/20/2022 Do You Use Any Illicit Or Recreational Drugs? No MIGRATION.496 9541341 Information not available 06/20/2022 Do You Use Sunscreen Routinely? No MIGRATION.401 1530889 Information not available 06/20/2022 Have You Recently Traveled Abroad? No MIGRATION.380 [id number] Information not available 06/20/2022 Do You Have Any Dietary Restrictions? No MIGRATION.650 0257232 Information not available 06/20/2022 Do You Or Have You Ever Used Any Other Forms Of Tobacco Or Nicotine? Yes Information not available 12/20/2022 Sex: Male Functional Status Question Answer Note LastModified by Organizat ion Details LastModified Time What is your exercise level? Moderate MIGRATION.[id number] Information not available 06/20/2022 Mental Status None recorded. Family History Relationship Description Onset Age of this Age Resolved Age Notes LastModified by Organization Details LastModified Time Father Heart disease MIGRATION.523 [id number] Not available 06/20/2022 05:05:28 Sister Hypertensive disorder MIGRATION.850 [id number] Not available 06/20/2022 05:05:28 Brother Diabetes mellitus MIGRATION.634 [id number] Not available 06/20/2022 05:05:28 Medical History Condition Response NERVE DISEASE N BLINDNESS N RHEUMATIC FEVER N KIDNEY STONES N BLADDER PROBLEMS N MRSA N OTHER # 1 N POLIO N LUNG DISEASE/DISORDER N HISTORY OF DRUG ABUSE N COPD N RADIATION / CHEMOTHERAPY N Other # 2 N BLOOD DISEASES N EAR OR HEARING PROBLEMS N MUMPS N SHINGLES N DEPRESSION (INCLUDING POST ) N BOWEL PROBLEMS N STROKE/TIA Y ULCERS N BENIGN PROSTATIC HYPERPLASIA N MEASLES N HYPOTENSION N MYOCARDIAL INFARCTION N OBESITY N GERD/NAUSEA N ANEURYSM N URINARY/BLADDER/KIDNEY PROBLEMS N CORONARY ARTERY DISEASE (CAD) N ADDICTION CONCERNS N Impotence N ENDOMETRIOSIS N USE OF BLOOD THINNERS N SKIN PROBLEMS N GASTROINTESTINAL DISORDER N PERIPHERAL VASCULAR DISEASE N MUSCLE,JOINT OR BONE PROBLEMS N GASTROINTESTINAL BLEEDING N BLOOD CLOTS N ASTHMA N CATARACTS N ERECTILE DYSFUNCTION Y VARICOSITIES N GI PROBLEMS N Low Testosterone N INFERTILITY N AIDS/HIV N CHEMOTHERAPY / RADIATION N LIVER DISEASE N MALE HYPOGONADISM N HYPERTENSION N Deficiency N TOURETTE'S N ANXIETY DISORDER N BLOOD TRANSFUSION N ANEMIA/BLOOD DISORDER N CHRONIC EAR INFECTIONS N BRONCHITIS N TUBERCULOSIS N GLAUCOMA N FOOT PROBLEM N DIVERTICULITIS N SLEEP APNEA N CHICKENPOX N INFECTIOUS DISEASE N PROSTATE N HEART ARRHYTHMIA N INSOMNIA N HIGH CHOLESTEROL / HYPERLIPIDEMIA N EYE PROBLEMS N HYPERTHYROIDISM N EDEMA N CHRONIC PAIN SYNDROME N HYPOTHYROIDISM N CAROTID BLOCKAGE N CONSTIPATION N BACK / NECK PROBLEMS N ATHEROSCLEROSIS N BREAST PROBLEMS N DIALYSIS N ECZEMA N OSTEOPOROSIS N ARTHRITIS Y APPENDICITIS N DIABETES, TYPE N BAD TEETH N ENT N HEARTBURN / REFLUX N AUTISM SPECTRUM DISORDER (ASD) N HEPATITIS / LIVER DISEASE N GOUT N SLEEP DISORDER N ALZHEIMER'S DISEASE N Brain Problems N DEMENTIA N HERPES N SEIZURES/EPILEPSY N HEADACHES/MIGRAINES N VASCULAR DISEASE N PACEMAKER N Blood Disorder N DIZZINESS N HEART DISEASE/HEART PROBLEMS N KIDNEY DISEASE N MULTIPLE SCLEROSIS N CANCER: SPECIFY N CARDIAC ARRHYTHMIA N ATRIAL FIBRILLATION N Gall Stones N PULMONARY EMBOLISM N AUTOIMMUNE DISEASE N Immunizations Vaccine Type Date Status Note Provider Nam e and Address Organization Details Recorded Time Tdap 05/20/2018 completed Not Available [facility] 06/20/2022 05:21:19 Influenza, split virus, quadrivalent, PF 05/20/2018 completed Not Available [facility] 05:21:19 Influenza, split virus, trivalent, PF 01/30/2024 completed Shabbir Salamanca MD [address] [facility], [address], [place], [address], [facility] 02/14/2024 23:50:59 Past Encounters Encounter ID Performer Location Encounter Start Date Encounter Closed Date Diagnosis/Indication Diagnosis SNOMED-CT Code Diagnosis ICD10 Code Diagnosis Note [id number] [facility] [address] [facility], [facility] [address] [place] [address] 08/02/2020 00:00:00 08/02/2020 19:04:36 [id number] [facility] [place] [address] [facility] [address] [place] [address] 02/28/2021 00:00:00 02/28/2021 15:50:35 [id number] [facility] [place] [address] [facility] [address] [place] [address] 03/14/2021 00:00:00 03/14/2021 19:44:40 [id number] [facility] [place] [address] [facility] [address] [place] [address] 05/18/2021 00:00:00 05/18/2021 10:54:28 [id number] [facility] [address] [facility], [address] [address] 06/13/2021 00:00:00 06/13/2021 18:46:44 [id number] [facility] [place] [address] [place] [address] 07/06/2021 00:00:00 07/10/2021 08:52:30 [id number] [facility] [place] [address] [place] [address] 07/11/2021 00:00:00 07/11/2021 17:31:18 [id number] [facility] [address] [place] [address] [address] [address] 10/10/2021 00:00:00 10/10/2021 17:59:33 [id number] [facility] [place] [address] [place] [address] 01/08/2022 00:00:00 01/08/2022 12:35:49 [id number] [facility] [address] [place] [address] [address] [address] 06/14/2022 00:00:00 06/14/2022 18:42:08 [id number] Shabbir anderson MD [facility] [address] [place] [address] [address] [address] 12/20/2022 11:25:15 12/20/2022 12:10:06 Screening - NAD [id number] Z13.9 05/30/18: Dr Farah, next in 7 years Get yearly flu shotUTD on Tdap today 05/20/18Ge t COVID 19 vaccine done and boosters follow all CDC guidelines RTC in 4 monthsER if worseHe did verbalize his understand ing of the above Cerebrovas cular accident 114952444 I63.9 Does well nowNo complaints Erectile dysfunction 860 039917 F52.21 On sildenafil 100mg daily, renewed 12/20/2022 Does well Pain of bi lateral hands 1435162576 [id number] M79.641 M79.642 Concern for CTS, he does do heavy manual laborHe declines any medsMore likely than not this is 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 OV 10/10/2021 :Has seen Dr Domínguez 07/11/2021 , to get surgery OV 06/14/2022 :Get a referral again OV 12/20/2022 : No complaints now Liver enzy mes level above reference range 892199740 R74.01 Get labs and US liver done Long-term drug therapy 569134113 Z79.899 Vitamin D deficiency 347 42925 E55.9 Pain of le ft shoulder joint 6997509740 5914590 M25.[address] Stubbs Arthritis 2615221 M19.90 Has noted pain in am, does get better with the day goes on, noted most in the L shoulder, R shoulder also but this is d/t a work comp injuryGet labs Serum rubi min B12 below reference range 005583946 R79.89 [id number] JAJA Barry [facility] [address] [address] 01/03/2023 08:56:06 01/03/2023 10:51:46 Pain of left shoulder joint [id number] 9780529 M25.512 M19.786 [id number] Shabbir anderson MD [facility] [address] [facility], [facility] [address] [place] [address] 05/09/2023 10:05:23 05/09/2023 10:35:45 Screening - NAD 484686936 Z13.9 05/30/18: Dr Farah, next in 7 years Get yearly flu shotUTD on Tdap today 05/20/18Ge t COVID 19 vaccine done and boosters follow all CDC guidelines Get RSV vaccineGet Shingrix RTC in 4 monthsER if worseHe did verbalize his understand ing of the above Cerebrovas cular accident [id number] I63.9 Does well nowNo complaints Erectile dysfunction 860 849849 F52.21 On sildenafil 100mg daily, renewed 12/20/2022 Does well Pain of bi lateral hands 8344727277 5476318 M79.641 M79.642 Concern for CTS, he does do heavy manual laborHe declines any medsMore likely than not this is 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 OV 10/10/2021 :Has seen Dr Domínguez 07/11/2021 , to get surgery OV 06/14/2022 :Get a referral again OV 12/20/2022 : No complaints now OV 05/09/2023 :Does well Liver enzy mes level above reference range 464114780 R74.01 Get labs and US liver done Long-term drug therapy 604204061 Z79.899 Vitamin D deficiency 347 37795 E55.9 Pain of le ft shoulder joint 8684711479 8487557 M25.[address] Stubbs Arthritis 4229553 M19.90 Has noted pain in am, does get better with the day goes on, noted most in the L shoulder, R shoulder also but this is d/t a work comp injuryGet labs OV 05/09/2023 : Referred to [facility] rheumatolo gy again, will try to get in with Dr Baird in [place] Serum rubi min B12 below reference range 845613783 R79.89 [id number] Marquis Stubbs MD [facility] [address] [address] 05/16/2023 11:56:23 05/16/2023 14:13:26 Pain of left shoulder joint 3728863701 4363853 M25.306 [id number] Shabbir anderson MD [facility] Rebeka tillman [address] [facility] [place] [address] 07/29/2023 15:41:04 07/29/2023 16:19:16 Screening - NAD 971358384 Z13.9 05/30/18: Dr Farah, next in 7 years Get yearly flu shotUTD on Tdap today 05/20/18Ge t COVID 19 vaccine done and boosters follow all CDC guidelines Get RSV vaccineGet Shingrix RTC in 4 monthsER if worseHe did verbalize his understand ing of the above Cerebrovas cular accident 867186576 I63.9 Does well nowNo complaints Erectile dysfunction 860 859465 F52.21 On sildenafil 100mg daily, renewed 12/20/2022 Does well Pain of bi lateral hands 8956224671 2912963 M79.[address] Domínguez 07/11/2021 , to get surgery Does well now has seen rheumatcindy gy Liver enzy mes level above reference range 634262658 R74.01 Get labs and US liver done Long-term drug therapy 907185313 Z79.899 Vitamin D deficiency 347 49939 E55.9 Pain of le ft shoulder joint 4248557079 7006350 M25.[address] Stubbs Arthritis 9990118 M19.90 Has noted pain in am, does get better with the day goes on, noted most in the L shoulder, R shoulder also but this is d/t a work comp injuryGet labs OV 05/09/2023 : Referred to [facility] rheumatcindy gy again, will try to get in with Dr Baird in [place] OV 07/29/2023 :On hydroxychl oroquine, will need to see eye MDOn leflunomid eSees Dr Baird Serum rubi min B12 below reference range 552209159 R79.89 Hyperglycemia 76366032 R 73.9 Get labs Long-term current use of hydroxychloroquine 6277783186 74476 Z79.743 [id number] Ludin canales MD [facility] [place] [address] [facility] [address] [place] [address] 10/29/2023 11:47:02 11/07/2023 12:33:32 Skin lesion 26600670 L98.9 [id number] Shabbir anderson MD [facility] Internal Med [address] [facility] [address] [place] [address] 11/26/2023 10:38:21 11/26/2023 11:18:40 Screening - NAD 115042102 Z13.9 05/30/18: Dr Farah, next in 7 years Get yearly flu shotUTD on Tdap today 05/20/18Ge t COVID 19 vaccine done and boosters follow all CDC guidelines Get RSV vaccineGet Shingrix RTC in 4 monthsER if worseHe did verbalize his understand ing of the above Cerebrovas cular accident 190527846 I63.9 Does well nowNo complaints Erectile dysfunction 860 251751 F52.21 On sildenafil 100mg as neededDoes well Pain of bi lateral hands 2144145104 7093275 M79.[address] Domínguez 07/11/2021 , to get surgery Does well now has seen rheumatcindy dennison Liver enzy mes level above reference range 012221129 R74.01 Get labs and US liver done Long-term drug therapy 053131996 Z79.899 Vitamin D deficiency 347 65880 E55.9 Pain of le ft shoulder joint 2821860730 7667974 M25.[address] Stubbs, referred 11/26/2023 Arthritis 3620266 M19.90 Has noted pain in am, does get better with the day goes on, noted most in the L shoulder, R shoulder also but this is d/t a work comp injuryGet labs OV 05/09/2023 : Referred to [facility] rheumatcindy dennison again, will try to get in with Dr Baird in [place] OV 07/29/2023 :On hydroxychl oroquine, will need to see eye MDOn leflunomid eSees Dr Baird OV 11/26/2023 :On hydroxychl oroquine 200mg 2 tabs daily, will need to see eye MDOn leflunomid e 20mg dailySe[address] Dr Baird Serum rubi min B12 below reference range 448462319 R79.89 Hyperglycemia 20225028 R 73.9 Get labs Long-term current use of hydroxychloroquine 8183482904 88918 Z79.899 Inguinal pain 023831989 R10.2 L sided, has noted a 'bulge' none today, but tender when this occurs, will refer to Dr Heck Skin lesion 83371262 L98 .9 Flat dark irregular lesion noted on the posterior scalp, will refer to Dr Heck Vertigo 116104850 R42 Notices when he get up from a sitting to standing position, will send for meclizine, notify if not better then may need to see ENT or PT Screening for cardiovascular system disease 574531318 Z13.6 Get a referral to cardiology [id number] Ludin canales MD [facility] General Surgery [address] [place] [address] 2023 10:40:36 2023 14:00:25 Skin lesion 26093867 L98.9 [id number] Shabbir anderson MD [facility] Internal Med [facility] [address], [facility] [address] [place] [address] 01/30/2024 15:31:41 01/30/2024 16:22:50 Screening - NAD 139596464 Z13.9 05/30/18: Dr Farah, next in 7 years Get yearly flu shotUTD on Tdap today 05/20/18Ge t COVID 19 vaccine done and boosters follow all CDC guidelines Get RSV vaccineGet Shingrix RTC in 3 monthsER if worseHe did verbalize his understand ing of the above Cerebrovas cular accident 840181933 I63.9 Does well nowNo complaints Erectile dysfunction 860 456293 F52.21 On sildenafil 100mg as neededDoes well Pain of bi lateral hands 0265094757 5796393 M79.[address] Domínguez 07/11/2021 , to get surgery Does well now has seen rheumatcindy gy Liver enzy mes level above reference range 310769757 R74.01 Get labsUS liver 12/13/2023 : Neg Long-term drug therapy 089581582 Z79.899 Vitamin D deficiency 347 83916 E55.9 Pain of le ft shoulder joint 7250992489 8535976 M25.[address] Stubbs, referred 11/26/2023 Arthritis 2970856 M19.90 Has noted pain in am, does get better with the day goes on, noted most in the L shoulder, R shoulder also but this is d/t a work comp injuryGet labs OV 05/09/2023 : Referred to [facility] rheumatcindy gy again, will try to get in with Dr Baird in [place] 07/29/2023 :On hydroxychl oroquine, will need to see eye MDOn leflunomid eSees Dr Baird OV 11/26/2023 :On hydroxychl oroquine 200mg 2 tabs daily, will need to see eye MDOn leflunomid e 20mg dailySe[address] Dr Baird OV 01/30/2024 :On hydroxychl oroquine 200mg 2 tabs daily, will need to see eye MDOn leflunomid e 20mg dailySe[address] Dr Baird, will refer to [facility] rheumatolo gy d/t his insurance issues Serum rubi min B12 below reference range 675769449 R79.89 Hyperglycemia 68847487 R 73.9 Get labs Long-term current use of hydroxychloroquine 4579513600 36588 Z79.899 Inguinal pain 883730002 R10.2 L sided, has noted a 'bulge' none today, but tender when this occurs, will refer to Dr Heck again 01/30/2024 Skin lesion 42651194 L98 .9 Flat dark irregular lesion noted on the posterior scalp, will refer to Dr Heck Vertigo 211203219 R42 Notices when he get up from a sitting to standing position, will send for meclizine, notify if not better then may need to see ENT or PT Screening for cardiovascular system disease 120735253 Z13.[address] Orta, last OV 01/20/2024 , is to get stress test and f/u on 03/04/2024 Administra tion of influenza vaccine 25307467 Z23 [id number] Ludin canales MD [facility] [place] Surgery [address] [facility] [address] [place] [address] 02/06/2024 11:13:00 02/06/2024 12:39:15 Inguinal pain 447339233 R10.2 Left Inguinal [id number] Shabbir anderson MD [facility] [place] Med [place] [address] [place] [address] 03/03/2024 14:44:47 03/03/2024 15:27:36 Screening - NAD 559951252 Z13.9 05/30/18: Dr Farah, next in 7 years Get yearly flu shotUTD on Tdap today 05/20/18Ge t COVID 19 vaccine done and boosters follow all CDC guidelines Get RSV vaccineGet Shingrix RTC in 3 monthsER if worseHe did verbalize his understand ing of the above Cerebrovas cular accident 724749974 I63.9 Does well nowNo complaints Erectile dysfunction 860 335807 F52.21 On sildenafil 100mg as neededDoes well Pain of bi lateral hands 2178395608 8361941 M79.[address] Domínguez 07/11/2021 , to get surgery Does well now has seen rheumatcindy gy Liver enzy mes level above reference range 656938994 R74.01 Get labsUS liver 12/13/2023 : Neg Long-term drug therapy 333000429 Z79.899 Vitamin D deficiency 347 89452 E55.9 Pain of le ft shoulder joint 4859924175 6723238 M25.[address] Stubbs, referred 11/26/2023 Arthritis 9637983 M19.90 Has noted pain in am, does get better with the day goes on, noted most in the L shoulder, R shoulder also but this is d/t a work comp injuryGet labs OV 05/09/2023 : Referred to [facility] again, will try to get in with Dr Baird in [place] 07/29/2023 :On hydroxychl oroquine, will need to see eye MDOn jono eSees Dr Baird OV 11/26/2023 :On hydroxychl oroquine 200mg 2 tabs daily, will need to see eye MDOn leflunomid e 20mg dailySemendez Baird OV 01/30/2024 :On hydroxychl oroquine 200mg 2 tabs daily, will need to see eye MDOn leflunomid e 20mg dailySe[address] Dr Baird, will refer to [facility] d/t his insurance issues OV 03/03/2024 :Not taking the hydroxychl oroquine 200mg 2 tabs daily, will need to see eye MDOn leflunomid e 20mg dailySe[address] Dr Baird, he does have an apt with [facility] denn[facility] now, he states that he has applied for 'disabilit y' Serum rubi min B12 below reference range 050049465 R79.89 Hyperglycemia 81971220 R 73.9 Get labs Long-term current use of hydroxychloroquine 0611026281 52454 Z79.899 Inguinal pain 979394507 R10.2 L sided, has noted a 'bulge' none today, but tender when this occurs, will refer to Dr Heck again 01/30/2024 Dr Saxena A/P: 02/13/2024 Now will refer to Dr Munoz as Dr Heck did not consider that he has a hernia Skin lesion 48699116 L98 .9 Flat dark irregular lesion noted on the posterior scalp, will refer to Dr Heck Vertigo 008607423 R42 Notices when he get up from a sitting to standing position, will send for meclizine, notify if not better then may need to see ENT or PT Screening for cardiovascular system disease 298241002 Z13.[address] Orta, last OV 01/20/2024 , is to get stress test and f/u on 03/04/2024 ECHO 02/19/2024 : EF 55%Stress test 02/26/2024 [facility] next OV 03/04/2024 Health Concerns Section Related Observation LastModified by Organization Detai ls LastModified Time None Recorded Concern Status LastModified by Organization Details LastModified Time None Recorded Advance Directives Directive N: Payers Encounter Date Sequence Insurance Name Policy Number Policy Saenz Covered Member ID Saenz Member ID Guarantor Name 11/26/2023 1 [facility] (MEDICAID HMO) [id number] Flower Fajardo [id number] Flower Fajardo 2023 1 [facility] (MEDICAID HMO) [id number] Flower Fajardo [id number] Flower Fajardo 01/30/2024 1 [facility] (MEDICAID HMO) [id number] Flower Fajardo [id number] Flower Fajardo 02/06/2024 1 [facility] (MEDICAID HMO) [id number] 0003 Flower Fajardo [id number] Flower Fajardo 03/03/2024 1 [facility] (MEDICAID HMO) [id number] 0003 Flower Fajardo [id number] [place] Fajardo Notes Date Note Type Note Provider Name and Address Organization Details Recorded Time 11/26/2023 text/html OV 10/02/16:He i s here to establish careMtst Hx:Doing well.Reviewed his surgical, social and family historyHe is doing well. He did have a lipoma removed from his shoulder and is doing well with that but does want it checked out again,He also had a tingling feeling on the R side of the face and went away after 4 hours, no other symptoms, no slurred speech or dysarthria or diplopia or headaches, infact he went to works and no more episodes.Also needs his viagra renewed todayOV 05/20/18:Here for a cyst on the shoulder and he has noted arthritis in the handHe has not had any labsNo other complaints OV 10/13/2019:Here for his routine aptHe has not done the labs!He feels 'great'Wants more viagra and also would like to take some vicodin as he has R knee pain, was told he needs to get a TKR but wants to 'hold off' as much as he can, and he states that he takes this very rarelyOV 08/02/2020:Here for his routine aptHe is doing wellC/o lois hand pain and R knee painHe 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, he also has to use power jacks and these require pulling and pushingOV 06/13/2021:Here for his routine aptHe feels well , still has lois hand pain and is s/p knee surgeryNo new labs OV 10/10/2021:Here for his routine aptHe is doing well, did see Dr Ramirez for his knee pain and also Dr Damon c/o R shoulder pain, wants to renew his hydrocodone and viagra alsoOV 06/14/2022:Here for his f/u apt, he is doing well today, no new labs OV 12/20/2022: Here for his f/u apt, he is doing well today, no new labs, has noted L shoulder pain, no acute injury, is unable to left his shoulder OV 05/09/2023: Here for his f/u apt, states that since last OV he had lost his insurance so could not see rheumatology but is now ready to do so, he does continue to have L shoulder pain and would also like to see ortho now OV 07/29/2023: Here for his f/u apt, he is doing well today, he did see Dr Baird, he does continue to have L shoulder pain, no N/Tor weakness and he did not yet see ortho OV 11/26/2023: Here for his f/u apt, he is doing well today, has noted a L inguinal area bulge, mildly tender, intermittent, worries about a hernia, no abd pain, no N/V or constipation or diarrhea, normal BMsAlso has the spot on the scalp, wants to get 'it out'Also has noted some vertigo, especially when he stand up from a sitting position, no chest pain or SOB, no palpitations, no syncope, no RIBEIRO or orthopnea or PND Shabbir Salamanca MD [address] [facility], [address], [place], [address], [employer] 11/26/2023 11:18:49 2023 text/html patient still concerned about scalp lesion says it has grown since last visit last month. Denies bleeding or pain Ludin Chavarria MD [address], [address], [place], [address], [employer] 2023 15:52:55 01/30/2024 text/html OV 10/02/16:He i s here to establish [facility] Hx:Doing well.Reviewed his surgical, social and family historyHe is doing well. He did have a lipoma removed from his shoulder and is doing well with that but does want it checked out again,He also had a tingling feeling on the R side of the face and went away after 4 hours, no other symptoms, no slurred speech or dysarthria or diplopia or headaches, infact he went to works and no more episodes.Also needs his viagra renewed todayOV 05/20/18:Here for a cyst on the shoulder and he has noted arthritis in the handHe has not had any labsNo other complaints OV 10/13/2019:Here for his routine aptHe has not done the labs!He feels 'great'Wants more viagra and also would like to take some vicodin as he has R knee pain, was told he needs to get a TKR but wants to 'hold off' as much as he can, and he states that he takes this very rarelyOV 08/02/2020:Here for his routine aptHe is doing wellC/o lois hand pain and R knee painHe 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, he also has to use power jacks and these require pulling and pushingOV 06/13/2021:Here for his routine aptHe feels well , still has lois hand pain and is s/p knee surgeryNo new labs OV 10/10/2021:Here for his routine aptHe is doing well, did see Dr Ramirez for his knee pain and also Dr Damon c/o R shoulder pain, wants to renew his hydrocodone and viagra alsoOV 06/14/2022:Here for his f/u apt, he is doing well today, no new labs OV 12/20/2022: Here for his f/u apt, he is doing well today, no new labs, has noted L shoulder pain, no acute injury, is unable to left his shoulder OV 05/09/2023: Here for his f/u apt, states that since last OV he had lost his insurance so could not see rheumatology but is now ready to do so, he does continue to have L shoulder pain and would also like to see ortho now OV 07/29/2023: Here for his f/u apt, he is doing well today, he did see Dr Baird, he does continue to have L shoulder pain, no N/Tor weakness and he did not yet see ortho OV 11/26/2023: Here for his f/u apt, he is doing well today, has noted a L inguinal area bulge, mildly tender, intermittent, worries about a hernia, no abd pain, no N/V or constipation or diarrhea, normal BMsAlso has the spot on the scalp, wants to get 'it out'Also has noted some vertigo, especially when he stand up from a sitting position, no chest pain or SOB, no palpitations, no syncope, no RIBEIRO or orthopnea or PND OV 01/30/2024: Here for his f/u apt, he is doing well today Shabbir Salamanca MD [address] [place] [address], [facility] [address], [place], [address], [facility] [email or web address] 02/14/2024 23:51:56 02/06/2024 text/html patient referred again by primary care for possible hernia possible bulging left lower abdomen. Patient states she she feels like a golf ball there at times. Denies nausea vomiting. Denies fevers or chills. Ludin Chavarria MD [address], [address], [place], [address], [place] [facility] 02/06/2024 14:15:48 03/03/2024 text/html OV 10/02/16:He i s here to establish carePast Hx:Doing well.Reviewed his surgical, social and family historyHe is doing well. He did have a lipoma removed from his shoulder and is doing well with that but does want it checked out again,He also had a tingling feeling on the R side of the face and went away after 4 hours, no other symptoms, no slurred speech or dysarthria or diplopia or headaches, infact he went to works and no more episodes.Also needs his viagra renewed todayOV 05/20/18:Here for a cyst on the shoulder and he has noted arthritis in the handHe has not had any labsNo other complaints OV 10/13/2019:Here for his routine aptHe has not done the labs!He feels 'great'Wants more viagra and also would like to take some vicodin as he has R knee pain, was told he needs to get a TKR but wants to 'hold off' as much as he can, and he states that he takes this very rarelyOV 08/02/2020:Here for his routine aptHe is doing wellC/o lois hand pain and R knee painHe 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, he also has to use power jacks and these require pulling and pushingOV 06/13/2021:Here for his routine aptHe feels well , still has lois hand pain and is s/p knee surgeryNo new labs OV 10/10/2021:Here for his routine aptHe is doing well, did see Dr Ramirez for his knee pain and also Dr Damon c/o R shoulder pain, wants to renew his hydrocodone and viagra alsoOV 06/14/2022:Here for his f/u apt, he is doing well today, no new labs OV 12/20/2022: Here for his f/u apt, he is doing well today, no new labs, has noted L shoulder pain, no acute injury, is unable to left his shoulder OV 05/09/2023: Here for his f/u apt, states that since last OV he had lost his insurance so could not see rheumatology but is now ready to do so, he does continue to have L shoulder pain and would also like to see ortho now OV 07/29/2023: Here for his f/u apt, he is doing well today, he did see Dr Baird, he does continue to have L shoulder pain, no N/Tor weakness and he did not yet see ortho OV 11/26/2023: Here for his f/u apt, he is doing well today, has noted a L inguinal area bulge, mildly tender, intermittent, worries about a hernia, no abd pain, no N/V or constipation or diarrhea, normal BMsAlso has the spot on the scalp, wants to get 'it out'Also has noted some vertigo, especially when he stand up from a sitting position, no chest pain or SOB, no palpitations, no syncope, no RIBEIRO or orthopnea or PND OV 01/30/2024: Here for his f/u apt, he is doing well today Ov 03/03/2024: Here as he would like another opinion for his groin pain, he states that Dr Heck does not seem worried about his groin, he did have a CT A/P and was told it was 'all normal' Shabbir Salamanca MD [address] [place] [address], [facility] [address], [place], [address], [place] [facility] 03/03/2024 18:37:23
--- OUTSIDE RECORDS SUMMARY | 2024-05-19 00:47 | XMS_ITS | Clinical Summary ---
Author Organization [facility] Address [address] [facility] [place] [address] Care Team Providers Care Dean Of Graduate Studies Name Role Phone Kailee Salamanca MD Primary Care Provider Source Comments [facility],non-owned Affiliates and Associated Physician Practices is amultiple site organization consisting of ambulatory clinics and hospital sitesin [place], [place], [place] and [place]. This disclosure is being madepursuant to the Care Everywhere program and may not contain all information available regarding this patient. Last updated 18.[employer] Medications Be aware that medications may not be up to date on this document. Always verify current medications with the patient. No known medications Active Problems No known active problems Social History Tobacco Use Types Packs/Day Years Used Date Smoking Tobacco: Never Assessed Sex and Gender Information Value Date Recorded Sex Assigned at Not on file Gender Identity Not on file Sexual Orientation Not on file Plan of Treatment Upcoming Encounters Date Type Department Care Team (Late st Contact Info) Description 08/12/2024 8:30 AM CDT Office Visit [facility] - Rheumatology [address] [place] [address], [place] [phone] Matthew Caba MD [address] [place] [address] [place] [address] Health Maintenance Due Date Last Done Comments COLOGUARD (AGES 45-75) - COL ON CA SCREENING 1960 COLON MONITORING 1960 COLONOSCOPY - COLON CA SCREENING 1960 CT COLONOGRAPHY - COLON CA SCREENING 1960 Colorectal Cancer Screening 1960 FIT - COLON CA SCREENING 1960 FLEX SIG - COLON CA SCREENING 1960 LIPID TESTING 1960 HIV SCREENING 12/20/1975 HEPATITIS C SCREENING 12/15/1978 DTAP/TDAP/TD VACCINES (1 - Tdap) 12/20/1979 PNEUMOCOCCAL VACCINE 50+ (1 of 1 - PCV) 2010 ZOSTER VACCINE (1 of 2) 2010 COVID-19 VACCINE (1 - 2023-2 5 season) 2023 INFLUENZA VACCINE (#1) 2023 05/20/2018 DEPRESSION SCREENING 04/22/2024 Respiratory Syncytial Virus (RSV) Vaccine Pt: or over 60 yrs (1 - 1-dose 75+ series) 12/20/2035 HEPATITIS B VACCINE Aged Out No longe r eligible based on patient's age to complete this topic HIB VACCINE Aged Out No longer eligi ble based on patient's age to complete this topic HPV VACCINE Aged Out No longer eligi ble based on patient's age to complete this topic MENINGOCOCCAL (Group B) VACCINE Aged Out No longer eligible based on patient's age to complete this topic MENINGOCOCCAL VACCINE Aged Out No tad zachary eligible based on patient's age to complete this topic PNEUMOCOCCAL VACCINE Aged Out No long er eligible based on patient's age to complete this topic Care Teams Dean Of Graduate Studies Relationship Specialty Start Date End Date Kailee Salamanca MD [address] [facility] [address] [place] [address] PCP - General Internal Medicine 12/16/23
--- OUTSIDE RECORDS SUMMARY | 2024-05-19 00:47 | XMS_ITS | CONTINUITY OF CARE DOCUMENT ---
Author Name pool otisemmie Address Unknown Organization [facility] Address [address] [place] [address] Phone [phone] Care Team Providers Care All Source Intelligence Name Role Phone Bebo Orta MD Unavailable [phone] SHABBIR AGUILAR MD Unavailable [phone] SHABBIR AGUILAR MD Unavailable [phone] PROBLEMS Condition Status Date Provider Notes Cardiology examination active Bebo Carson Rheumatoid Arthritis active Bebo Orta MD Vertigo active Bebo Orta MD Palpitations active Bebo Orta MD Chest discomfort active Bebo Orta MD Abnormal cardiovascular stress test active Kaylynn Ventimiglia RECREATION ACTIVITIES COORDINATOR Hx of supraventricular tachy cardia (SVT) active Kaylynn Ventimiglia RECREATION ACTIVITIES COORDINATOR Nicotine dependence active Kaylynn Ventimigl ia RECREATION ACTIVITIES COORDINATOR ENCOUNTERS Date Type Provider Location Encounter Diag nosis 2 - 2 In-person encounter Office Visit Bebo Orta MD [place] [facility] Nicotine dependence 3 - 4 In-person encounter Office Visit Bebo Orta MD [place] [facility] Abnormal cardiovascular stress testHx of supraventricular tachycardia (SVT) 0 - 0 In-person encounter Office Visit Bebo Orta MD [place] [facility] Cardiology examinationRheumatoid ArthritisVertigoPalpitationsChest discomfort VITAL SIGNS Date Observation Value Provider Body Mass Index (Ratio) 25.28 kg/m2 Bebo Orta MD blood pressure, diastolic 68 mm[Hg] Thom murry [place] blood pressure, systolic 123 mm[Hg] Sonya quinteros [place] oxygen saturation, oximetry 90 % Sergio Deal pulse rate 75 /min Sergio [place] weight E&M 186.4 [lb_av] [facility] blood pressure, cuff size regular Thom murry [place] height E&M 72 [in_i] [facility] Body Mass Index (Ratio) 24.14 kg/m2 Bhaskar Ortega blood pressure, diastolic 84 mm[Hg] Devorah terrazas Hay blood pressure, systolic 128 mm[Hg] Ghislaine post Hay oxygen saturation, oximetry 98 % [facility] pulse rate 64 /min [facility] respiratory rate E&M 12 /min [facility] weight E&M 178 [lb_av] [facility] height E&M 72 [in_i] [facility] blood pressure, cuff size regular An mk Hay weight E&M 174 [lb_av] Marion Murray Body Mass Index (Ratio) 23.60 kg/m2 Rubén Araujo pulse rate 83 /min Elodiajustin Allen blood pressure, cuff size regular Milan bitkatarzyna Allen blood pressure, diastolic 68 mm[Hg] Ta bitha Allen blood pressure, systolic 114 mm[Hg] Tab itha Allen oxygen saturation, oximetry 94 % Elodia Allen weight E&M 174 [lb_av] Elodia Allen height E&M 72 [in_i] Elodia Allen respiratory rate E&M 12 /min Elodia Allen ALLERGIES No Known Drug Allergies HISTORY OF MEDICATION USE Medication Status Instructions Dates Provider Indications Com ments leflunomide 20 mg tablet active TAKE 1 TABLET BY MOUTH DAILY Elodia Allen hydroxychloroquine 200 mg tablet active TAKE 2 TABLETS BY MOUTH DAILY Elodia Allen meclizine 25 mg tablet active TAKE 1 TA BLET BY MOUTH EVERY DAY NEEDED FOR DIZZINESS Elodia Allen sildenafil 100 mg tablet active TAKE 1 TABLET BY MOUTH ONE HOUR PRIOR TO SEXUAL INTERCOURSE NEEDED Elodia Allen SOCIAL HISTORY Date Observation Value Provider personal history of marijuana use no Kaylynn Ventimiglia [facility] drug use no Kaylynn Ventimig bonita [facility] alcohol use no Kaylynn Ventimig bonita [facility] smoking status Current every da y smoker Kaylynn Ventimiglia [facility] personal history of marijuana use no Kaylynn Ventimiglia [facility] drug use no Kaylynn Ventimig bonita [facility] alcohol use no Kaylynn Ventimig bonita [facility] smoking status Current every da y smoker [facility] INSURANCE PROVIDERS Payer name Policy type / Coverage type [place] [employer] party ID [employer] MEDICAID Medicaid [id number] ADVANCE DIRECTIVES Name Date DISCUSSED - NO DECISION MADE TREATMENT PLAN Date Name Performer Cardiology Kaylynnjorge Snowmigl ia [facility] Cardiology:continued attempts at cessation encouraged H e has cut vaping amount in 1/2 Kaylynn Ventimiglia [facility] Cardiology:No futher reports of chest pain. No SOB h e had abnormal treadmill stress but nuclear stress test was normal w ill continue to monitor Kaylynn Ventimiglia [facility] Cardiology:Has had s hort burst of palpitations encouraged continued caffeine cessation H e wishes to avoid medication therapy at this time and will return or call if symptoms more pronounced. Kaylynn Ventimiglia [facility] Cardiology Kaylynn Ventimigl ia [facility] Cardiology:see above Kaylynnjorge [place] imiglia [facility] Cardiology:Patient h ad equivicol stress test with frequent PVCs during recovery C ontinued palpitations and noted SVT on tele monitor W ill plan for nuclear stress test to r/o ischemia Kaylynn Edypeytonrachel RECREATION ACTIVITIES COORDINATOR Cardiology:On medclizine po qd T homas [place] Cardiology:follows with pcp Rubén Araujo Cardiology:check mon itor r to after testing Oli Araujo Cardiology:Arrange f or a routine stress test to be done A rrange for echo Oli Araujo Date Name Stress Exercise Card iolite Monitor - Telemetry (Mobile Cardiac) Stress Routine Complete Echo HISTORY OF PROCEDURES Procedure Date Procedure Name Provider Procedure Notes S tatus Complex e/m visit add on Bebo Orta MD completed EKG Bebo Orta MD completed
--- OUTSIDE RECORDS SUMMARY | 2024-05-19 00:47 | XMS_ITS | Patient Health Summary ---
Author Organization [facility] [employer] Address [address] [place] [address] Care Team Providers Care Steel Spar Operator Name Role Phone Kailee Salamanca MD Primary Care Provider Note from [facility] [facility],non-owned Affiliates and Associated Physician Practices is amultiple site organization consisting of ambulatory clinics and hospital sitesin [place], [place], [place] and [place]. This disclosure is being madepursuant to the Care Everywhere program and may not contain all information available regarding this patient. Last updated 18.[employer] Medications Be aware that medications may not [...] on file Sexual Orientation Not on file Procedures * RETINAL ANALYSIS OCT(Performed 12/17/2023) Performed for Encounter for long-term (current) use of medications Results * RETINAL ANALYSIS OCT (12/17/2023 9:44 AM CDT) Anatomical Region Laterality Modality Head External-Camera Photography Narrative 12/17/2023 12:17 PM CDT Images from the original result were not included. MAC OCT WNL. No evidence of plaquenil toxicity. Monitor yearly. Oli Ferraro OD OPHTHALMOLOGY SCHED ORD W PACS Care Teams Steel Spar Operator Relationship Specialty Start Date End Date Kailee Salamanca MD [address] [id number] PCP - General Internal Medicine 12/16/23
--- OUTSIDE RECORDS SUMMARY | 2024-05-19 00:47 | XMS_ITS | Referral Summary ---
Author Organization [facility] Address [address] [place] [address] Care Team Providers Care Air Hose Coupler Name Role Phone Kailee Salamanca MD Primary Care Provider Source Comments [facility],non-owned Affiliates and Associated Physician Practices is amultiple site organization consisting of ambulatory clinics and hospital sitesin [place], [place], [place] and [place]. This disclosure is being madepursuant to the Care Everywhere program and may not contain all information available regarding this patient. Last updated [facility] Medications Be aware that medications may not [...] Office Visit [facility] - Rheumatology [address] [place] [address], [place] [phone] Matthew Caba MD [address] [place] [address] [place] [address] Care Teams Air Hose Coupler Relationship Specialty Start Date End Date Kailee Salamanca MD [address] [facility] [address] [place] [address] PCP - General Internal Medicine 12/16/23
--- OUTSIDE RECORDS SUMMARY | 2024-05-19 00:47 | XMS_ITS | Clinical Summary ---
Author Organization [facility] Address [address] [place] [id number] Care Team Providers Care Net Software Engineer Name Role Phone Unavailable Primary Care Provider Unavailabl e Social History Tobacco Use Types Packs/Day Years Used Date Smoking Tobacco: Never Assessed Sex and Gender Information Value Date Recorded Sex Assigned at Not on file Legal Sex Male 6:40 PM COTA Gender Identity Not on file Sexual Orientation Not on file Plan of Treatment Health Maintenance Due Date Last Done Comments COLORECTAL SCREENING 2005 Colorectal Cancer Screening 2005 FIT-DNA Q 3 years 2005 FIT/FOBT Q 1 year 2005 Flex Sig/CT Colonography Q 5 years 2005 ZOSTER VACCINE (1 of 2) 2010 INFLUENZA VACCINE (#1) 2023 05/20/2018 DTAP/TDAP/TD VACCINES (2 - T d or Tdap) 05/20/2028 05/20/2018 RSV VACCINE (60+ or ) (1 - 1-dose 75+ series) 12/20/2035 PNEUMOCOCCAL VACCINE 0-64 YEARS Aged Out No longer eligible based on patient's age to complete this topic Insurance
[2024-05-19] MEDS: LACTATED RINGERS 1,000 ML 30 ML IV CONT ×2 (06:30→09:04)
[2024-05-19] MEDS: ACETAMINOPHEN 500 MG TABLET 1000 MG PO (06:30)
[2024-05-19] MEDS: KETOROLAC 15 MG/ML VIAL (*BKC) IV PUSH (06:30)
--- NOTE | 2024-05-19 07:15 | P.HP_ITS ---
H&P: HPI History of Present Illness Date/Time: 05/19/24 07:15 Chief Complaint: LIH Narrative: 63 yo man presents for LIH repair. He reports no changes since last seen in office. Review of Systems Review of Systems: All systems reviewed & are unremarkable except as noted in HPI and below Constitutional: Constitutional: Denies chills, Denies fever(s), Denies headache(s) and Denies weight loss Eyes: Eyes: Denies change in vision ENT: Denies dizziness, Denies headache(s), Denies neck mass and Denies throat swelling Cardiovascular: Cardiovascular: Denies chest pain, Denies lightheadedness and Denies dyspnea Respiratory: Respiratory: Denies cough, Denies dyspnea and Denies wheezing Gastrointestinal: Gastrointestinal: Denies abdominal pain, Denies change in bowel habits, Denies nausea and Denies vomiting Genitourinary: Genitourinary: Denies hematuria and Denies dysuria Musculoskeletal: Musculoskeletal: Reports as per HPI Integumentary/Breasts: Skin/Breast: Reports as per HPI Neurologic: Denies dizziness and Denies headache(s) Allergic/Immunologic: Allergic/Immunologic: Denies throat swelling and Denies wheezing [facility] Past Medical History Medical History Encounter for medication management Counseling on health promotion and disease prevention Generalized osteoarthritis of multiple sites Rheumatoid arthritis with rheumatoid factor of multiple sites without organ or systems involvement Family History Family History (Updated 04/03/24 @ 09:53 by Sultana Scales CMA) Father Hypertension Depression Heart disease Cerebrovascular accident Mother Diabetes mellitus Heart disease Hypertension Depression Cerebrovascular accident Social History Social History (Updated 04/03/24 @ 09:54 by Sultana Scales CMA) Smoking packs per day: 0.75 Smoking cigarettes per day: 15.0 Years smoked: 15 Smoking pack-years: 11.25 Smoking status: Former smoker Tobacco type: e-cigarettes/vaping Additional smoking assessment comments: VAPED FOR 1 YEAR, STOPPED MAR 2024 Alcohol intake: current Alcohol use details: 2 DRINKS PER YEAR Substance use: former Substance use type: marijuana Last use: 2 WEEKS AGO Current Housing: Decline to Answer Concerned About Future Housing: Decline to Answer Difficulty Paying Gas/Electric Bills: Decline to Answer Difficulty Paying for Meds: Decline to Answer Currently Unemployed: Decline to Answer Education: Decline to Answer Difficulty w/ Childcare or Family Care: Decline to Answer Living arrangements: alone Meds Home Medications and Allergies Home Medications ?Medication ?Instructions ?Recorded ?Confirmed ?Type hydroxychloroquine 200 mg tablet 400 mg (2 x 200 mg) PO DAILY #180 06/18/23 05/08/24 Rx (Plaquenil) tabs leflunomide 20 mg tablet See Rx Instructions .Route 07/15/23 05/08/24 Rx .COMPLEX #90 tabs naproxen sodium 220 mg capsule 220 mg PO BID PRN pain 05/08/24 05/08/24 History (Aleve) Allergies Allergy/AdvReac Type Severity Reaction Status Date / Time No Known Allergies Allergy Verified 05/19/24 06:44 Vital Signs Vital Signs - 24 hr 05/19/24 06:30 Temperature 97.7 F Pulse Rate 74 Respiratory Rate 14 Blood Pressure 127/75 Pulse Oximetry 96 Oxygen Delivery Room Air Exam Const: General: no acute distress and alert Orientation/consciousness: pat ient oriented x3 HENMT: Head: normocephalic and atraumatic Ears: hearing grossly normal bilaterally Face/Nose/Sinus: Normal nares present Mouth: Yes Normal oral and palatal mucosa present Eyes: Periorbital: periorbital findings normal Sclera: sclerae normal EOM: EOMs intact bilaterally Neck: Neck: normal visual inspection, no lymphadenopathy and trachea midline Chest: Chest palpation & inspection: normal inspection of the chest Resp: Effort & Inspection: normal respiratory effort Auscultation: clear to auscultation bilaterally Cardio: Jugular venous distension: no JVD Rate: regular rate Rhythm: regular rhythm Heart sounds: S1 normal heart sound present and S2 normal heart sound present Peripheral pulses: Peripheral pulses 2+ throughout GI: Inspection: normal to inspection GI Palp: Yes Soft to palpation, No Tenderness to palpation present (GI), No Guarding due to palpation present (GI) and No Rebound tenderness present Percussion: Yes normal to percussion Auscultation: normal bowel sounds : General: Yes no CVA tenderness Scrotum: inguinal hernia on the left Back/Spine/Pelvis: Back: no CVA tenderness Neuro: General: patient oriented x3, no focal motor deficits and CN's II-XI intact bilaterally Cognition (Neuro): normal cognition Speech: normal speech Motor exam (neuro): 5/5 motor strength present throughout Extrem: General: capillary refill normal and no clubbing, cyanosis or edema Assessment and Plan Assessment and plan (1) Left inguinal hernia: Code(s): K40.90 - Unilateral inguinal hernia, without obstruction or gangrene, not specified as recurrent Status: Acute Assessment and Plan: I have recommended laparoscopic left inguinal hernia repair with mesh, da Kannan assisted. I have discussed the procedure, risks, benefits, and alternatives with the patient. All questions answered. No changes since last seen in office.
--- NOTE | 2024-05-19 07:15 | WPDHPUPDATE1 ---
History and Physical Update Update Date/Time: 05/19/24 07:15 History and Physical has been reviewed, including an updated exam of the patient. There are NO changes in the patient's condition. Risks, benefits, and alternatives have been discussed and questions answered. Patient agrees to proceed with procedure.
--- NOTE | 2024-05-19 07:22 | P.PNAN_ITS ---
Anes - Initial Pre Proc Eval Procedure: Operation Date: 05/19/24 07:30 Proposed Procedures p Laparoscopic Left Inguinal Hernia Repair, Davinci Assisted - Jeremy Jc DO Date/Time: 05/19/24 07:22 Surgeon: Jeremy Jc DO Pre Op Diagnosis: Left Inguinal Hernia Patient Data Age: 63 Gender: M Height: 1.8 m Weight: 82.4 kg Last Vital Signs Temp 36.5 C 05/19/24 06:30 Pulse 74 05/19/24 06:30 Resp 14 05/19/24 06:30 BP 127/75 05/19/24 06:30 Pulse Ox 96 05/19/24 06:30 O2 Del Method Room Air 05/19/24 06:30 Allergies Allergy/AdvReac Type Severity Reaction Status Date / Time No Known Allergies Allergy Verified 05/19/24 06:44 Home Medications ?Medication ?Instructions ?Recorded ?Confirmed ?Type hydroxychloroquine 200 mg tablet 400 mg (2 x 200 mg) PO DAILY #180 06/18/23 05/08/24 Rx (Plaquenil) tabs leflunomide 20 mg tablet See Rx Instructions .Route 07/15/23 05/08/24 Rx .COMPLEX #90 tabs naproxen sodium 220 mg capsule 220 mg PO BID PRN pain 05/08/24 05/08/24 History (Aleve) Patient hx anesthesia problems: none Family hx anesthesia problems: none Results Review: All pre-operative results and documents have been reviewed as part of the pre- operative evaluation. [facility] Past Medical History Medical History Encounter for medication management Counseling on health promotion and disease prevention Generalized osteoarthritis of multiple sites Rheumatoid arthritis with rheumatoid factor of multiple sites without organ or systems involvement Family History Family History Father Hypertension Depression Heart disease Cerebrovascular accident Mother Diabetes mellitus Heart disease Hypertension Depression Cerebrovascular accident Social History Social History Smoking packs per day: 0.75 Smoking cigarettes per day: 15.0 Years smoked: 15 Smoking pack-years: 11.25 Smoking status: Former smoker Tobacco type: e-cigarettes/vaping Additional smoking assessment comments: VAPED FOR 1 YEAR, STOPPED MAR 2024 Alcohol intake: current Alcohol use details: 2 DRINKS PER YEAR Substance use: former Substance use type: marijuana Last use: 2 WEEKS AGO Current Housing: Decline to Answer Concerned About Future Housing: Decline to Answer Difficulty Paying Gas/Electric Bills: Decline to Answer Difficulty Paying for Meds: Decline to Answer Currently Unemployed: Decline to Answer Education: Decline to Answer Difficulty w/ Childcare or Family Care: Decline to Answer Living arrangements: alone Anes - Eval Final PreProcedure Day of Procedure 05/19/24 07:22 Patient weight: normal Heart: regular rate and rhythm Lungs: clear to auscultation Airway: Mallampati scale class II Neurological: alert and oriented Last oral intake: >/= 8 hours ASA classification: III Emergent: no Anesthetic plan: proceed Anesthesia type and monitoring: general ETT and standard monitoring Results Review: All pre-operative results and documents have been reviewed as part of the pre- operative evaluation. Informed Consent: The patient's anesthetic plan and its attendant risks and benefits were discussed with the patient/family/POA. Questions were solicited and answers provided to the satisfaction of the patient/family/POA.
[2024-05-19] MEDS: ceFAZolin 2 GM/D5W 50 ML 2 GM/50 ML BAG IVPB (07:28)
[2024-05-19] MEDS: BUPIVACAINE/EPINEPHRINE 0.5% 50 ML VIAL 30 ML INFILTRATE (07:59)
--- NOTE | 2024-05-19 08:44 | W.PM.PROC2 ---
Procedure Note - Detailed Date of Procedure 05/19/24 Pre-op Diagnosis Left Inguinal Hernia Post-op Diagnosis Same (Indirect LIH) Procedure Performed Laparoscopic left inguinal hernia repair with mesh, da Kannan assisted Surgeon Jeremy Jc, DO Anesthesia General and Local (0.5% bupivacaine with epinephrine) Indications This is a 63-year-old man who presents with a left inguinal hernia. He was experiencing an occasional bulge in the left groin region over the past 6-8 months. It would usually reduce on its own with lying down. A he did have some occasional discomfort or burning occasionally with physical activity. He was found to have a small reducible left inguinal hernia on exam. Discussions were made with the patient about treatment options and decision was made to proceed with robotic assisted laparoscopic left inguinal hernia repair with mesh. Findings Robotic assisted laparoscopic left inguinal hernia repair with mesh was performed. The patient was found to have a medium-sized indirect left inguinal hernia. The sigmoid colon was going up near the internal inguinal ring but did not appear to be going into the hernia defect itself. There was no evidence of a right inguinal hernia. A robotic transabdominal preperitoneal approach was utilized for repair of the left inguinal hernia. Once a wide enough preperitoneal pocket was created and the hernia sac was reduced, I then placed a large left 3DMax mid mesh overlying the entire left myopectineal orifice. No specimens were obtained for pathology. Description of Procedure Procedure as well as risks, benefits, and alternatives were discussed with the patient. Written consent was obtained and placed in chart prior to procedure. Patient was brought back to surgical suite. He was placed supine on operating table. Time-out was done to confirm patient and procedure. He was then intubated by Anesthesia Department. His abdomen was prepped and draped in sterile fashion using chlorhexidine prep. 0.5% bupivacaine with epinephrine was infiltrated at each location for incision. An 8 mm incision was made in the left lateral abdomen, and a 5 mm Optiview trocar was advanced through the abdominal layers under direct visualization. Once inside the abdominal cavity, carbon dioxide insufflation was used to create a pneumoperitoneum. A camera was inserted and the abdominal cavity was inspected. The patient was placed in slight Trendelenburg position. An 8 millimeter incision was made on the right lateral abdomen and an 8 millimeter trocar was inserted under direct visualization. Another 8 millimeter incision was made just superior to the umbilicus and an 8 millimeter trocar was inserted under direct visualization. The 5 mm port was then removed and this was replaced with another 8 mm robotic port. The robotic arms were brought up to the patient's bedside and secured to the ports. The camera and instruments were inserted. I then moved over to the robotic console and took control of the camera and instruments. After careful inspection of the abdominal cavity, I began scoring the peritoneum along the left lower quadrant using scissors with electrocautery. The preperitoneal plane was entered and this was carefully dissected caudally along the inferior epigastric vessels. Careful dissection with scissors with electrocautery and blunt dissection was used to continue this dissection. I dissected far enough laterally to allow for mesh placement, and also dissected medially to identify the pubic arch and Hammad's ligament. The hernia sac was identified and carefully dissected posteriorly. The cord contents were also identified and the peritoneum was carefully dissected far enough posteriorly to allow for mesh placement. Once an adequate pocket was created, I then placed the mesh within the preperitoneal pocket and carefully unfolded it. The mesh was centered on the hernia defect with adequate overlap circumferentially. The inferior edge of the mesh was inspected to ensure that it was far enough away from the peritoneal edge. The mesh appeared in proper position overlying the entire myopectineal orifice. The mesh was secured using 3-0 Vicryl simple interrupted sutures in Hammad's ligament, the superior medial edge, and superior lateral edge of the mesh. The peritoneum was then closed over the mesh using a 3-0 V-lock running absorbable suture. The robotic instruments were removed. The robotic arms were disengaged from the ports and moved away from the bedside. The patient was flattened out in bed, the ports were removed under direct visualization, and the pneumoperitoneum was released. The skin of the incisions was approximated using 4-0 Monocryl subcuticular suture, and Exofin glue was applied on top. The patient was awakened from anesthesia, extubated, and transferred to recovery. Implants Large left 3DMax mid mesh Estimated Blood Loss 5 Complications No immediate complications Condition Stable Disposition Same day [facility] Billing Surgery - Charge Forward: Surgery Billing
== END 2024-05-19 10:51 | disposition home or self-care (01) ==
PROVIDERS: PCP Internal Medicine; Visit Provider Surgery
PROC: 8E0Y4CZ Robotic Assisted Procedure of Lower Extremity, Percutaneous Endoscopic Approach (ICD-10-PCS; CPT 49650; principal; 2024-05-19 07:30)
DX: K40.90 Unilateral inguinal hernia, without obstruction or gangrene, not specified as recurrent (principal); F12.90 Cannabis use, unspecified, uncomplicated; Z87.891 Personal history of nicotine dependence
CPT/HCPCS: 49650; S2900; A9270; C1781; J0690; J1596; J1885; J2250; J2270; J2704; J2710; J7030; J7120

== ENCOUNTER 2024-07-13 13:49 | Outpatient (CLI) | payer OTHER, SELFPAY ==
--- NOTE | ~2024-07-13 | XR_ITS ---
EXAMINATION: XR lg joint inject/asp w image DATE: 07/13/2024 14:47 INDICATION: Primary osteoarthritis, left shoulder. TECHNIQUE: A time-out was performed to verify the patient's name, date of , and procedure to b e performed. The procedure including the risks, benefits, and alternatives was discussed with the pat ient. Risks discussed included bleeding and infection. The patient understood the risks and agreed to proceed. The skin overlying the left lateral humeral joint was prepped and draped in usual sterile fashion. Anesthetic was administered with 1% lidocaine subcutaneously. A 22 G needle was advanced u nder fluoroscopic guidance into the joint. Subsequently, injectate consisting of 4 mL 1% lidocaine a nd 1 mL 80 mg/mL Depo-Medrol was instilled. The needle was removed and the entry site was cleaned an d dressed. There were no immediate complications. Fluoroscopy exposure time was 0.1 minutes. The tot al number of images was 1. FINDINGS: Real-time fluoroscopy demonstrates the needle in the left glenohumeral joint. IMPRESSION: 1. Fluoroscopy guided left glenohumeral joint injection of local anesthetic and steroid. Reviewed, dictated and finalized at location A.
--- OUTSIDE RECORDS SUMMARY | 2024-07-13 15:52 | XMS_ITS | Clinical Summary ---
Author Organization [facility] Address [address] [place] [address] Care Team Providers Care Mild Disabilities Teacher Name Role Phone Kailee Salamanca MD Primary Care Provider Source Comments [facility],non-owned Affiliates and Associated Physician Practices is amultiple site organization consisting of ambulatory clinics and hospital sitesin [place], [place], [place] and [place]. This disclosure is being madepursuant to the Care Everywhere program and may not contain all information available regarding this patient. Last updated 18.[facility] Medications Be aware that medications may not [...] Office Visit [facility] - Rheumatology [address] [place] [address], [place] [id number] Matthew Caba MD [address] [place] [address] [place] [address] Health Maintenance Due Date Last [...] to complete this topic MENINGOCOCCAL (Group B) VACC INE SHARED DECISION-MAKING Aged Out No longer eligibl e based on patient's age to complete this topic MENINGOCOCCAL GROUPS A/C/Y/W VACCINE Aged Out No longer eligible b ased on patient's age to complete this topic Care Teams Mild Disabilities Teacher Relationship Specialty Start Date End Date Kailee Salamanca MD [address] [place] [address] PCP - General Internal Medicine 12/16/23
--- OUTSIDE RECORDS SUMMARY | 2024-07-13 15:52 | XMS_ITS | Clinical Summary ---
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
--- OUTSIDE RECORDS SUMMARY | 2024-07-13 15:52 | XMS_ITS | CONTINUITY OF CARE DOCUMENT ---
Author Name pool otisemmie Address Unknown Organization [facility] Address [address] [place] [address] Phone [phone] Care Team Providers Care It Risk Advisor Name Role Phone Bebo Orta MD Unavailable [phone] SHABBIR AGUILAR MD Unavailable [phone] SHABBIR AGUILAR MD Unavailable [phone] PROBLEMS Condition Status Date Provider Notes Cardiology examination active Bebo Carson Rheumatoid Arthritis active Bebo Orta MD Vertigo active Bebo Orta MD Palpitations active Bebo Orta MD Chest discomfort active Bebo Orta MD Abnormal cardiovascular stress test active Kaylynn Ventimiglia [employer] Hx of supraventricular tachy cardia (SVT) active Kaylynn Ventimiglia [facility] Nicotine dependence active Kaylynn Ventimigl ia [facility] ENCOUNTERS Date Type Provider Location Encounter Diag nosis 2 - 2 In-person encounter Office Visit Bebo Orta MD [facility] Nicotine dependence 3 - 4 In-person encounter Office Visit Bebo Orta MD [facility] Abnormal cardiovascular stress testHx of supraventricular tachycardia (SVT) 0 - 0 In-person encounter Office Visit Bebo Orta MD [facility] Cardiology examinationRheumatoid ArthritisVertigoPalpitationsChest discomfort VITAL SIGNS Date Observation Value Provider Body Mass Index (Ratio) 25.28 kg/m2 Bebo Orta MD blood pressure, diastolic 68 mm[Hg] Thom murry [place] blood pressure, systolic 123 mm[Hg] Sonya quinteros [place] oxygen saturation, oximetry 90 % Sergio Deal pulse rate 75 /min Sergio [place] weight E&M 186.4 [lb_av] [facility], cuff size regular Thom murry [place] height E&M 72 [in_i] [facility] [place] Body Mass Index (Ratio) 24.14 kg/m2 Bhaskar Ortega blood pressure, diastolic 84 mm[Hg] Devorah terrazas [place] blood pressure, systolic 128 mm[Hg] Ghislaine post [place] oxygen saturation, oximetry 98 % [facility] 64 [facility]min [facility] respiratory rate E&M 12 /min [facility] weight E&M 178 [lb_av] [facility] height E&M 72 [in_i] [facility] blood pressure, cuff size regular An mk [...] history of marijuana use no Kaylynn Ventimiglia [facility] drug use no Kaylynn Ventimig bonita [facility] alcohol use no Kaylynn Ventimig bonita [facility] smoking status Current every da y smoker Kaylynn Ventimiglia [facility] personal history of marijuana use no Kaylynn Ventimiglia [facility] drug use no Kalyynn Ventimig bonita [facility] alcohol use no Kaylynn Ventimig bonita [facility] smoking status Current every da y smoker [facility] INSURANCE PROVIDERS Payer name Policy type / Coverage type [place] red libertarian ID [employer] MEDICAID Medicaid [id number] ADVANCE DIRECTIVES Name Date DISCUSSED - NO DECISION MADE TREATMENT PLAN Date Name Performer Cardiology Kaylynnjorge Snowmigl ia [facility] Cardiology:continued attempts at cessation encouraged H e has cut vaping amount in 1/2 Kaylynn Ventimiglia [facility] Cardiology:No futher reports of chest pain. No SOB h e had abnormal treadmill stress but nuclear stress test was normal w ill continue to monitor Kaylynn Ventimiglia [facility] Cardiology:Has had s hort burst of palpitations encouraged continued caffeine cessation H e wishes to avoid medication therapy at this time and will return or call if symptoms more pronounced. Kaylynn Ventimiglia [facility] Cardiology Kaylynn Ventimigl ia [facility] Cardiology:see above Kaylynnjorge [place] imiglia [facility] Cardiology:Patient h ad equivicol stress test with frequent PVCs during recovery C ontinued palpitations and noted SVT on tele monitor W ill plan for nuclear stress test to r/o ischemia Kaylynn Edypeytonrachel [employer] Cardiology:On medclizine po qd T homas [place] Cardiology:follows with pcp Rubén Araujo Cardiology:check mon [...]
== END 2024-07-13 13:50 | disposition home or self-care (01) ==
LOC: ANHIMG 13:50
PROVIDERS: PCP Internal Medicine; Visit Provider Physician Assistant Surgical
DX: M19.011 Primary osteoarthritis, right shoulder (principal); M19.012 Primary osteoarthritis, left shoulder
CPT/HCPCS: 20610; 77002; J1010; J2003